=== PATIENT | female | born 1950 | race Caucasian/White ===

== ENCOUNTER 2020-11-21 10:23 | Outpatient (CLI) | payer MEDICARE, SELFPAY ==
--- NOTE | 2020-11-21 10:30 | ECG_ITS ---
Measurements Intervals [place] Rate: 72 P: 52 [place]: 147 QRS: 5 QRSD: 83 T: 40 QT: 380 QTc: 417 Interpretive Statements SINUS RHYTHM INCOMPLETE RIGHT BUNDLE BRANCH BLOCK DELAYED PRECORDIAL R/S TRANSITION BASELINE ARTIFACT- III, AL, AVF BORDERLINE ECG Electronically Signed On 11-21-2020 10:45:29 CDT by Jose Manuel Mooney D.O.
[2020-11-21 10:58] LABS: Anion Gap 6 mmol/L (8-16); Blood Urea Nitrogen 20 mg/dL (7-17); Calcium 10.3 mg/dL (8.4-10.2); Carbon Dioxide 32 mmol/L (22-30); Chloride 99 mmol/L (98-107); Estimated Glomerular Filt Rate > 60; Glucose 115 mg/dL (65-105); Potassium 4.3 mmol/L (3.4-5.0); Sodium 137 mmol/L (137-145)
== END 2020-11-21 10:24 | disposition home or self-care (01) ==
LOC: ANHSURGERY 10:28
PROVIDERS: Anesthesiology; PCP Internal Medicine; Visit Provider Orthopaedic Surgery
DX: Z01.818 Encounter for other preprocedural examination (principal); E11.9 Type 2 diabetes mellitus without complications; I45.10 Unspecified right bundle-branch block
CPT/HCPCS: 36415; 80048; 93005

== ENCOUNTER → 2020-11-28 01:18 | Outpatient (CLI) | payer MEDICARE, SELFPAY ==
[2020-11-28 18:48] LABS: SARS-CoV-2 RNA PCR Negative
== END ==
PROVIDERS: PCP Internal Medicine; Visit Provider Orthopaedic Surgery
DX: Z01.812 Encounter for preprocedural laboratory examination (principal); Z20.822 Contact with and (suspected) exposure to COVID-19
CPT/HCPCS: C9803; U0003; U0005

== ENCOUNTER 2020-12-01 01:59 | Day surgery (SDC) | payer MEDICARE, SELFPAY ==
[2020-11-17 10:22] VITALS: BMI 24.8
--- NOTE | 2020-11-30 09:38 | P.PNAN_ITS ---
Anes - Initial Pre Proc Eval Procedure: Operation Date: 12/01/20 10:00 Proposed Procedures p Removal Hardware Left Ankle - Srinivas Hdez MD Date/Time: 11/30/20 09:38 Surgeon: Srinivas Hdez MD Pre Op Diagnosis: painful orthopedic hardware Patient Data Age: 70 Gender: F Height: 1.52 m Weight: 57.72 kg Allergies Allergy/AdvReac Type Severity Reaction Status Date / Time No Known Allergies Allergy Verified 12/01/20 08:14 Home Medications Medication Instructions Recorded Confirmed Type lisinopril 20 mg PO BID 08/06/19 12/01/20 History metformin 500 mg BID 11/17/20 12/01/20 History famotidine 20 mg PO BID 11/21/20 12/01/20 History Patient hx anesthesia problems: none Family hx anesthesia problems: none [facility] Past Medical History Medical History (Updated 11/30/20 @ 09:39 by Jimmy Rivas DO) Aftercare following surgery (08/10/19) Diabetes type 2, controlled Fracture of left ankle, lateral malleolus GERD (gastroesophageal reflux disease) Hard of hearing History of ovarian cancer Hypertension Neuropathy Status post open reduction and internal fixation (ORIF) of fracture (08/10/19) Family History Family History Sibling Carcinoma of colon Father Malignant neoplasm of prostate Mother Family history of lung cancer Social History Social History Smoking status: Never smoker Second hand tobacco smoke exposure: No Alcohol intake: current Alcohol use details: STATES MAYBE 1 DRINK/MONTH Substance use: never Substance use type: does not use Living arrangements: with family Gender identity (if verbalized by the patient): Female Spiritual care concerns: No Anes - Eval Final PreProcedure Day of Procedure 11/30/20 09:38 Patient weight: normal Heart: regular rate and rhythm Lungs: clear to auscultation and normal air movement Airway: Mallampati scale class III Neurological: alert and oriented Last oral intake: >/= 8 hours ASA classification: III Emergent: no Anesthetic plan: proceed Anesthesia type and monitoring: general LMA and standard monitoring Informed Consent: The patient's anesthetic plan and its attendant risks and benefits were discussed with the patient/family/POA. Questions were solicited an d answers provided to the satisfaction of the patient/family/POA.
[2020-12-01] VITALS (9 sets, daily range): BP systolic 135–161; BP diastolic 55–80; PULSE 56–86; RESP 11–20; TEMP 36.2–36.4; O2SAT 98–100
--- NOTE | ~2020-12-01 | XR_ITS ---
EXAMINATION: XR surgery orthopedic EXAM DATE: 12/01/2020 11:11 INDICATION: Left ankle hardware removal. TECHNIQUE: Fluoroscopy used during XR surgery orthopedic performed by Dr. Srinivas Hdez MD. R adiologist was not present for the imaging or procedure. Total fluoroscopic time of 1 2nd. The DAP for this procedure was 0.30360 mGym2. A total of 2 images sent to PACS from the exam. FINDINGS: Defects from prior fibular hardware identified. No residual metallic foreign bodies identi fied. Correlate with procedure note. IMPRESSION: Fluoroscopy used during left fibular hardware removal. Reviewed, dictated and finalized at location A.
--- NOTE | 2020-12-01 07:14 | WPDHPUPDATE1 ---
History and Physical Update Update Date/Time: 12/01/20 07:14 History and Physical has been reviewed, including an updated exam of the patient. There are NO changes in the patient's condition. Risks, benefits, and alternatives have been discussed and questions answered. Patient agrees to proceed with procedure.
[2020-12-01] MEDS: ACETAMINOPHEN 500 MG TABLET 1000 MG PO (08:36)
[2020-12-01] MEDS: LACTATED RINGERS 1,000 ML 30 ML IV CONT (08:40)
[2020-12-01] MEDS: KETOROLAC 15 MG/ML VIAL (*BKC) IV PUSH (08:45)
[2020-12-01 08:50] LABS: Glucose Point of Care 110 mg/dl (65-105)
[2020-12-01] MEDS: ceFAZolin 2 GM/D5W 50 ML 2 GM/50 ML BAG IVPB (10:24)
[2020-12-01] MEDS: BUPIVACAINE HCL 0.5% PF 30 ML VIAL 20 ML INFILTRATE (11:13)
[2020-12-01 11:41] LABS: Glucose Point of Care 104 mg/dl (65-105)
--- NOTE | 2020-12-01 12:27 | PM.PROC ---
Procedure Note - Detailed Date of procedure: 12/01/20 Pre-op diagnosis: painful orthopedic hardware Post-op diagnosis: same Procedure performed: Removal deep implanted hardware distal fibula lateral plate and screws. Status post ORIF distal fibula fracture. Anesthesia: GLMA Surgeon: Srinivas Hdez MD Drilling Rig Operator: Mavis Zambrano PA-C Estimated blood loss (mL): 5 Complications: No immediate complications Condition: stable Disposition: PACU Findings: Preoperative antibiotics were given. The leg was prepped and draped in usual sterile fashion. Tourniquet was placed high on the thigh. The limb was exsanguinated and the tourniquet inflated to 300 mmHg. A longitudinal incision was created at the previous incision along the distal fibula. The plate was carefully exposed. No peroneal nerve branches were encountered. The screws removed sequentially followed by the plate. The screw holes were curetted. Soft tissues were closed with interrupted 2-0 Vicryl suture, 3-0 Monocryl suture, 4-0 running Monocryl. Steri-Strips were applied. Sterile bulky dressing was applied. Patient was extubated and brought to the recovery room in stable condition. There were no complications.
== END 2020-12-01 13:42 | disposition home or self-care (01) ==
PROVIDERS: PCP Internal Medicine; Visit Provider Orthopaedic Surgery
PROC: (CPT 20680; principal; 2020-12-01 10:00)
DX: T84.84XA Pain due to internal orthopedic prosthetic devices, implants and grafts, initial encounter (principal); Y83.8 Other surgical procedures as the cause of abnormal reaction of the patient, or of later complication, without mention of misadventure at the time of the procedure; M25.572 Pain in left ankle and joints of left foot; Z87.81 Personal history of (healed) traumatic fracture; I10 Essential (primary) hypertension; E11.40 Type 2 diabetes mellitus with diabetic neuropathy, unspecified; K21.9 Gastro-esophageal reflux disease without esophagitis; Z85.43 Personal history of malignant neoplasm of ovary; Z79.84 Long term (current) use of oral hypoglycemic drugs
CPT/HCPCS: 20680; 82948; A9270; J0690; J1100; J1885; J2250; J2405; J2704; J3010; J7120

== ENCOUNTER 2022-08-08 06:39 | Outpatient (CLI) | payer MEDICARE, SELFPAY ==
--- NOTE | ~2022-08-08 | CT_ITS ---
CT Abdomen and Pelvis with contrast. History: Abdominal pain. Spiral CT of the abdomen and pelvis was performed after the administration of intravenous contrast. 1 00 cc of Omnipaque 350 was administered intravenously without complication. Dose reduction technique was used on this scan by utilizing automated exposure control and iterative reconstruction technique. The dose-length product (DLP) was 304.45 mGy-cm. Findings: Scans through the lung bases demonstrate mild atelectatic change. Diffuse fatty infiltration of the liver noted. The spleen, pancreas, gallbladder, adrenals and kidney s are within normal limits. No evidence of aortic aneurysm. No lymphadenopathy is seen. There is no evidence of bowel obstruction. There is no evidence to suggest acute appendicitis or dive rticulitis. Images through the pelvis were performed. Right inguinal hernia contains a small portion of the urina ry bladder (axial image 174, coronal image 37 for example). Patient is status post hysterectomy. No o ther pelvic mass seen. No ascites is seen. Impression: Right-sided inguinal hernia which contains a small portion of the urinary bladder, as detailed above. Diffuse fatty infiltration of liver. Reviewed, dictated and finalized at location M. PULLER Impression: Right-sided inguinal hernia which contains a small portion of the urinary bladd er, as detailed above. Diffuse fatty infiltration of liver.
[2022-08-08 07:06] LABS: Estimated Glomerular Filt Rate > 60
== END 2022-08-08 06:40 | disposition home or self-care (01) ==
PROVIDERS: PCP Internal Medicine; Visit Provider Nurse Practitioner Obstetrics & Gynecology
DX: R10.2 Pelvic and perineal pain (principal); K40.90 Unilateral inguinal hernia, without obstruction or gangrene, not specified as recurrent; K76.0 Fatty (change of) liver, not elsewhere classified
CPT/HCPCS: 74177; Q9967

== ENCOUNTER 2024-05-04 07:44 | Outpatient (CLI) | payer MEDICARE, SELFPAY ==
--- NOTE | ~2024-05-04 | CT_ITS ---
CT abdomen pelvis w con Ordering provider: Clement Barnes MD History: 74 years Female with . INGUINAL PAIN,PELVIC AND PERINEAL PAIN . Comparison: August 08, 2022 Technique: CT abdomen and pelvis with IV and without oral contrast. Automated exposure control and it erative reconstruction technique were employed. The dose-length product was 349.49 mGy-cm. 100 mL Omn ipaque 350 was given IV. Findings: VISUALIZED LOWER CHEST: Dependent atelectatic changes. Possible nodule near to the right oblique fiss ure measuring 5 mm. UPPER ABDOMINAL ORGANS: Liver: Fat infiltration. CBD measures 1 cm. Gallbladder: Normal. Distended with no definite stones. Small hyperdense area seen near to the neck o f the gallbladder which may be a stone or enhancement in the wall. Spleen: Normal. Benign calcification. Stomach/duodenum: Normal. Pancreas: Normal. Adrenals: Normal. Kidneys: Minimal fullness of the left renal pelvis. No ureteric stones seen. No dilatation of the ure ters. Pelviureteric junction stenosis should be considered. PELVIC ORGANS: The bladder is underfilled and appear normal. BOWEL AND MESENTERY: Colon: No evidence of diverticulitis. No evidence of appendicitis. Possibility of status post appende ctomy is not excluded. Small Bowel: Normal. No obstruction. Peritoneum/mesentery: No free air or free fluid. No mesenteric lymphadenopathy. RETROPERITONEUM: Mild atheromatous disease of the abdominal aorta. No retroperitoneal lymphadenopat hy. MUSCULOSKELETAL: Superficial soft tissues: Soft tissue density seen in the right inguinal area which is unchanged from previous examination. Follow-up advised. Otherwise, The superficial soft tissues are normal. Bones: Age appropriate degenerative changes of the spine. IMPRESSION: 1. Soft tissue density in the right inguinal area unchanged from previous examination. Follow-up adv ised. 2. Fat infiltration of the liver. 3. Fullness of the renal pelvis bilaterally. Reviewed, dictated and finalized at location A. IMPRESSION: 1. Soft tissue density in the right inguinal area unchanged from previous exam ination. Follow-up advised. 2. Fat infiltration of the liver. 3. Fullness of the renal pelvis bilaterally.
[2024-05-04 08:17] LABS: Estimated Glomerular Filt Rate > 60
== END 2024-05-04 07:45 | disposition home or self-care (01) ==
PROVIDERS: PCP Internal Medicine; Visit Provider Obstetrics & Gynecology
DX: R10.2 Pelvic and perineal pain (principal); K76.0 Fatty (change of) liver, not elsewhere classified
CPT/HCPCS: 74177; Q9967

== ENCOUNTER 2024-05-13 10:46 | Outpatient (CLI) | payer MEDICARE, SELFPAY ==
--- NOTE | ~2024-05-13 | US_ITS ---
EXAMINATION: US soft tissue groin RT DATE: 05/13/2024 11:06 INDICATION: R10.31 - Right lower quadrant pain . TECHNIQUE: Grayscale and Doppler ultrasound images of the right groin were obtained. COMPARISON: 05/04/2024 CT abdomen and pelvis FINDINGS: In the right groin in the area of clinical concern is an inguinal hernia with a 16 mm neck, exacerbated by Valsalva maneuver. Herniated content is slightly hypoechoic to adjacent subcutaneous fat. No definite cystic/fluid component of the herniated material. In the prior CT the right superola teral corner of the urinary bladder appear to be herniated. IMPRESSION: Right inguinal hernia. Reviewed, dictated and finalized at location K. IMPRESSION: Right inguinal hernia.
== END 2024-05-13 10:47 | disposition home or self-care (01) ==
PROVIDERS: PCP Internal Medicine; Visit Provider Surgery
DX: R10.31 Right lower quadrant pain (principal); K40.90 Unilateral inguinal hernia, without obstruction or gangrene, not specified as recurrent
CPT/HCPCS: 76882

== ENCOUNTER 2024-07-09 17:22 | Emergency (ER) | payer MEDICARE, SELFPAY ==
--- NOTE | ~2024-07-09 | XR_ITS ---
EXAM: XR knee RT min 4V DATE: 07/09/2024 18:11 HISTORY: right knee pain, injury . COMPARISON: None available. FINDINGS: Osteopenia. No fracture or dislocation. No lytic or blastic lesion. Mild degenerative birch ge. No erosion or periosteal change. Thickening of the distal quadriceps tendon. IMPRESSION: No acute osseous finding the right knee. Thickening of the distal quadriceps tendon which could represent chronic change or acute injury, correlate for pain/point tenderness. Reviewed, dictated and finalized at location K. RMATION TECHNOLOGY SECURITY ANALYST IMPRESSION: No acute osseous finding the right knee. Thickening of the distal q uadriceps tendon which could represent chronic change or acute injury, correlat e for pain/point tenderness.
[2024-07-09 17:25] VITALS: BP 149/61; PULSE 78; RESP 16; TEMP 36.4; O2SAT 99
--- NOTE | 2024-07-09 17:47 | ED.EXTPRO ---
HPI - Extremity Problem General Chief complaint: Extremity Problem,Nontraumatic Stated complaint: r knee pain Time Seen by Provider: 07/09/24 17:47 Focused HPI: This is a 74 year old female that presents to the ER for right knee pain. Ongoing over the last week. Reports today she was walking and felt like the back of her knee snapped. She fell to the floor. She did not hit her head or lose consciousness. GENERAL: Well-appearing, well-nourished, and in no acute distress. HEAD: Normocephalic, atraumatic. CHEST: Clear to auscultation. ?No respiratory distress. HEART: Regular rate and rhythm.? NEURO: ?Alert and oriented x3. Patient screened in triage and initial orders placed.? ?Additional care and disposition to be based upon?diagnostic testing and treatment. Related Data Home Medications ?Medication ?Instructions ?Recorded ?Confirmed ?Last Taken ?Type lisinopril 20 mg tablet 20 mg PO BID 08/06/19 05/25/24 11/30/20 History metformin 500 mg tablet 500 mg BID 11/17/20 05/25/24 11/30/20 History famotidine 20 mg tablet 20 mg PO BID 11/21/20 05/25/24 11/30/20 History Allergies Allergy/AdvReac Type Severity Reaction Status Date / Time No Known Allergies Allergy Verified 05/25/24 08:31 [facility] Past Medical History Medical History (Updated 07/13/24 @ 21:26 by Jade Garcia PA-C) History of ovarian cancer Hard of hearing Diabetes type 2, controlled GERD (gastroesophageal reflux disease) Neuropathy Aftercare following surgery (08/10/19) Fracture of left ankle, lateral malleolus Hypertension Surgical History Surgical History Status post open reduction and internal fixation (ORIF) of fracture (08/10/19) Family History Family History Sibling Carcinoma of colon Father Malignant neoplasm of prostate Mother Family history of lung cancer Social History Social History Smoking status: Never smoker Second hand tobacco smoke exposure: No Alcohol intake: current Alcohol use details: STATES MAYBE 1 DRINK/MONTH Substance use: never Substance use type: does not use Do You Feel Safe in your Home?: Yes Lack of Transportation: No Lack of Food: Never True Current Housing: I Have Housing Concerned About Future Housing: No Difficulty Paying Gas/Electric Bills: No Difficulty Paying for Meds: No Currently Unemployed: No Education: High School Diploma/GED Living arrangements: with family Gender identity (if verbalized by the patient): Female Spiritual care concerns: No Course Vital Signs Vital signs: Vital Signs Temperature 97.6 F 07/09/24 17:25 Pulse Rate 78 07/09/24 17:25 Respiratory Rate 16 07/09/24 17:25 Blood Pressure 149/61 H 07/09/24 17:25 Pulse Oximetry 99 07/09/24 17:25 Temperature 97.6 F 07/09/24 17:25 Pulse Rate 78 07/09/24 17:25 Respiratory Rate 16 07/09/24 17:25 Blood Pressure 149/61 H 07/09/24 17:25 Pulse Oximetry 99 07/09/24 17:25 MDM - Extremity (Nontraumatic) MDM Narrative Medical decision making narrative: Patient left after medical screening exam and initial workup and before any further evaluation or management Imaging Data Radiologist's impression: ITS Impressions Knee X-Ray 07/09/24 18:19 IMPRESSION: No acute osseous finding the right knee. Thickening of the distal quadriceps tendon which could represent chronic change or acute injury, correlate for pain/point tenderness. Critical Care Time Critical Care Time Critical Care Time: No Discharge Plan Discharge Clinical Impression: Acute pain of right knee Patient Disposition: Elopement After Seen by Prov Condition: Stable Patient Language: Bulgarian Prescriptions: No Action lisinopril 20 mg Tablet 20 mg PO BID metformin 500 mg tablet 500 mg BID famotidine 20 mg Tablet 20 mg PO BID hydrocodone-acetaminophen 5-325 mg tablet 1 tablet PO Q4H PRN (Reason: pain) Qty: 20 0RF Follow-up/Referrals: lEeazar,Arvin Foote MD [Primary Care Provider] -
== END 2024-07-09 18:00 | disposition left against medical advice (07) ==
PROVIDERS: Emergency Provider Physician Assistant; PCP Internal Medicine
DX: M25.561 Pain in right knee (principal); E11.9 Type 2 diabetes mellitus without complications; Z79.84 Long term (current) use of oral hypoglycemic drugs; K21.9 Gastro-esophageal reflux disease without esophagitis; I10 Essential (primary) hypertension; Z85.43 Personal history of malignant neoplasm of ovary
CPT/HCPCS: 73564; 99283

== ENCOUNTER 2024-08-31 09:01 | Outpatient (CLI) | payer MEDICARE, SELFPAY ==
--- NOTE | ~2024-08-31 | XR_ITS ---
EXAMINATION: XR chest 2V DATE: 08/31/2024 09:39 INDICATION: Preoperative evaluation prior to inguinal hernia repair. TECHNIQUE: PA and lateral views of the chest were obtained. COMPARISON: Chest radiograph dated 04/20/2012 FINDINGS: Mild linear discoid atelectasis/scarring at the left lower lung zone. No other airspace opacities, pu lmonary edema, pleural effusion or pneumothorax. Heart size is normal. Visualized bones and soft tiss ues are unremarkable. IMPRESSION: 1. Mild discoid atelectasis/scarring in the left lower lung zone. Reviewed, dictated and finalized at location A. TRICAL DESIGN TECHNOLOGIST
--- NOTE | 2024-08-31 09:16 | ECG_ITS ---
Test Date: 2024-08-31 09:21:08 Measurements Intervals [place] Rate: 73 P: 51 [place]: 145 QRS: 2 QRSD: 89 T: 25 QT: 397 QTc: 439 Interpretive Statements SINUS RHYTHM BASELINE ARTIFACT- I, II, III, AVR, AVL, AVF, V1-V6 NORMAL ECG No previous ECG available for comparison Electronically Signed On 08-31-2024 09:36:49 VIRTUALIZATION ARCHITECT by Jose Manuel Mooney D.O.
[2024-08-31 09:38] LABS: Basophils Absolute Auto 0.1 K/mm3 (0.0-0.1); Eosinophils Absolute Auto 0.2 K/mm3 (0-0.3); Eosinophils Percent Auto 2.9 % (0-4.4); Hematocrit 37.7 % (37.0-47.0); Hemoglobin 11.4 g/dL (12.0-15.0); Immature Granulocyte Absolute 0.04 K/mm3 (0.00-0.031); Immature Granulocyte Percent A 0.6 % (0-0.5); Lymphocytes Absolute Auto 1.44 K/mm3 (0.9-3.2); Mean Corpuscular HGB Conc 30.2 g/dl (32-36); Mean Corpuscular Hemoglobin 24.5 pg (26-34); Mean Corpuscular Volume 81.1 fl (80-100); Mean Platelet Volume 10.4 fl (7.4-10.4); Monocytes Absolute Auto 0.6 K/mm3 (0.1-0.6); Monocytes Percent Auto 9.2 % (2.6-8.5); Neutrophils Absolute Auto 4.5 K/mm3 (1.3-6.7); Neutrophils Percent Auto 65.3 % (45.5-73.1); Platelet Count Result 162 k/mm3 (150-375); Red Blood Count 4.65 M/mm3 (4.2-5.4); Red Cell Distribution Width 14.1 % (11.5-14.5); White Blood Count 6.9 K/mm3 (4.5-10.0)
[2024-08-31 09:49] LABS: Anion Gap 8 mmol/L (4-12); Blood Urea Nitrogen 18 mg/dL (7-17); Calcium 9.7 mg/dL (8.4-10.2); Carbon Dioxide 27 mmol/L (22-30); Chloride 107 mmol/L (98-107); Estimated Glomerular Filt Rate > 60; Glucose 148 mg/dL (65-110); Potassium 4.5 mmol/L (3.4-5.0); Sodium 142 mmol/L (137-145)
--- OUTSIDE RECORDS SUMMARY | 2024-08-31 11:49 | XMS_ITS | Data Portability ---
Author Organization [facility] Address [address] [place] [address] Care Team Providers Care Business Support Assistant Name Role Phone DEBBIE ALFONSO Primary Care Provider [phone] Assessment Encounter Date Assessment Date Assessment LastModified by Organization Details LastModified Time 07/23/2022 07/23/2022 Recommend update PCP visit for BP check & discussion medication change. [email or web address] Not available 07/23/2022 12:49:33 Plan of Treatment Reminders Order Date Submit Date Provider Last Modified By Organization Details Last Modified Time Details Appointments None recorded. Lab None recorded. Referral None recorded. Procedures None recorded. Surgeries None recorded. Imaging US, pelvis 2023 [address] [place] [address] [address], [address], [place], [address], 12:10:28 US, transvagina l 2023 [address] [place] [address] [address], [place], [address], 12:10:28 MAMMO, screening, bilateral [address] [facility] [address] [facility], [address], [place] [address], [place], [address], 3 09:12:56 CT, abdomen + pelvis, w/ contrast - looking for causes of pelvic or abdominal pain; reports hysterectom y want to ensure no svp research and strategic analysis parts left 2022 023 [facility], [address], [place], [address], 12:20:54 Medication Orders Imvexxy Maintenance Pack 10 mcg vaginal insert 2022 [address]23 [address] [facility] [address], [address], 10:48:43 Patient TargetsNo targets recorded. Patient InstructionsNo instructions recorded. Reason for Referral None Reported. Results Created Date Observation Date Name Description Value Unit Range Abnormal Flag Note LastModifiedBy Organization Detail LastModifiedTime 07/23/1907/23/2022 CT/GC AND TRICH OMONA S VAGIN LISA (RRNA ), SWAB chlamydia trachomatis, PCR NEGATI VE negati ve Not Available [facility] (Lab) [address], [place], [address], 07/24/2022 13:07:29 07/23/19 23 07/23/2022 CT/GC AND TRICH OMONA S VAGIN LISA (RRNA ), SWAB neisseria gonorrhoeae, PCR NEGATI VE negati ve Not Available [facility] (Lab) [address], [place], [address], 07/24/2022 13:07:29 07/23/19 23 07/23/2022 CT/GC AND TRICH OMONA S VAGIN LISA (RRNA ), SWAB trichomonas vaginalis ribosomal RNA (rrna) NEGATI VE negati ve Not Available [facility] (Lab) [address], [place], [address], 07/24/2022 13:07:29 08/20/19 23 08/08/2022 CT, abdom en + pelvi s, w/ contr ast No observ ation record ed. [email or web address], [place], [address], 11/19/2022 10:44:02 10/03/20 24 04/16/2024 US, pelvi s No observ ation record ed. [email or web address] [place] [address], [place], [address], 04/16/2024 12:56:05 04/16/20 24 04/16/2024 US, trans vagin al No observ ation record ed. [email or web address] [place] [address], [place], [address], 04/16/2024 12:56:18 04/16/20 24 04/16/2024 US, pelvi s No observ ation record ed. [email or web address], [place], [address], 04/16/2024 21:50:32 05/04/20 24 05/04/2024 CT, abdom en + pelvi s, w/wo contr ast No observ ation record ed. [facility] [address], [place], [address], 05/08/2024 10:18:42 Result Notes None recorded. Problems Name Problem SNOMED Code Status Onset Date Resolution Date Notes Provider Name and Address Organization Details Recorded Time SNOMED CT Concept Active 2016 Encntr for general adult medical exam w/o abnormal findings;P ashishtice ID: [id number] Not Available [facility] 0 16:45:56 Screening for malignant neoplasm of rectum Active 2016 Encounter for screening for malignant neoplasm of rectum;Rec orded Elsewhere: No Locatio n: [facility] rce: EHR Chroni c: N Practice ID: [id number] Billa ble Time: 08:15:00 AM Not Available [facility] 0 16:45:[address] Concept Active 2016 Well woman check w/o abnormal finding;Re corded Elsewhere: No Locatio n: [facility] rce: EHR Chroni c: N Practice ID: 0001 Billa ble Time: 08:15:00 AM Not Available [facility] 0 16:45:56 Screening for malignant neoplasm of cervix Active 2016 Encounter for screening for malignant neoplasm of cervix;Rec orded Elsewhere: No Locatio n: [facility] rce: EHR Chroni c: N Practice ID: [id number] Karthikeyan gregg Time: 08:15:00 AM Not Available [facility] 0 16:45:56 Problem Notes None recorded. Procedures Surgical History Date Name Laterality Status Provider Name and Address Organization Details Recorded Time 10/14/19 23 hernia repair completed Annie Martinez [facility] 11/19/2022 09:57:27 03/26/20 17 Date of Last Pap Smear completed Kathleen Espino [facility] 07/23/2022 09:24:11 07/15/18 95 hysterectomy completed Nithya Chan [facility]- [address], [place], [address], [facility] 07/23/2022 12:35:43 07/17/18 94 Removal of ovary(s) completed Nithya Chan JESSICA- [address], [place], [address], [place] [facility] 07/23/2022 12:35:35 Imaging Results Imaging Date Name Status LastModified by Organization Details LastModified Time 08/08/2022 CT, abdomen + pelvis, w/ contrast completed [address], [place], [address], 11/19/2022 10:44:02 04/16/2024 US, pelvis completed [email or web address] [place] [address], [place], [address], 04/16/2024 12:56:05 04/16/2024 US, transvaginal [email or web address] [address], [place], [address], 04/16/2024 12:56:18 04/16/2024 US, pelvis completed [email or web address] [address], [place], [address], 04/16/2024 21:50:32 05/04/2024 CT, abdomen + pelvis, w/wo contrast completed [facility] [address], [place], [address], 05/08/2024 10:18:42 Procedure Notes None recorded. Medical Equipment None Reported. Allergies No known drug allergies Medications Name Sig Start Date Stop Date Status Note LastModified by Organization Details LastModified Time losartan 50 mg tablet TAKE 1 TABLET BY MOUTH ONCE DAILY 04/23 completed Not Available Not Available Not Available metformin 500 mg tablet TAKE 2 TABLETS BY MOUTH TWICE DAILY WITH FOOD active Not Available Not Available No t Available meloxicam 15 mg tablet TAKE 1 TABLET BY MOUTH ONCE DAILY active Not Available Not Available No t Available alendrona te 70 mg tablet TAKE 1 TABLET BY MOUTH ONCE A WEEK active Not Available Not Available No t Available peg-elect rolyte solution 420 gram oral solution DRINK HALF AT 5PM ON 01/09/20 24, THEN DRINK THE OTHER HALF AT 5AM ON 04/23 completed Not Available Not Available Not Available triamcino lone acetonide 0.1 % topical cream APPLY CREAM TOPICALL Y TO AFFECTED AREA TWICE DAILY FOR 7 DAYS active Not Available Not Available No t Available glimepiri de 2 mg tablet TAKE 1 TABLET BY MOUTH ONCE DAILY active Not Available Not Available No t Available oxycodone -acetamin ophen 5 mg-325 mg tablet TAKE 1 TABLET BY MOUTH EVERY 4 TO 6 HOURS NEEDED 04/23 completed Not Available Not Available Not Available famotidin e 20 mg tablet TAKE 1 TABLET BY MOUTH TWICE DAILY 04/23 completed Not Available Not Available Not Available meclizine 25 mg tablet take 1 tablet by oral route 3 times every day as needed 07/23 completed Prescrib ed Elsewher e: Yes Loca tion: [facility] odify By: elaine zambrano DateTime : 03/26/20 17 08:15:00 AM Not Available Not Available Not Available esomepraz ole magnesium 40 mg capsule,d elayed release Take 1 capsule every day by oral route. 04/23 completed Not Available Not Available Not Available lisinopri l 10 mg tablet take 1 tablet by oral route every day 07/23 completed Prescrib ed Elsewher e: Yes [facility]oca [facility] By: elaine zambrano DateTime : 03/26/20 17 08:15:00 AM Not Available Not Available Not Available bisacodyl 5 mg tablet,de layed release TAKE ALL TABLETS BY MOUTH AT 8 AM ON 01/09/24 active Not Available Not Available No t Available ergocalci ferol (vitamin D2) 1,250 mcg (50,000 unit) capsule TAKE 1 CAPSULE BY MOUTH ONCE A WEEK active Not Available Not Available No t Available losartan 100 mg tablet TAKE 1 TABLET BY MOUTH ONCE DAILY active Not Available Not Available No t Available doxycycli ne hyclate 100 mg tablet TAKE 1 TABLET BY MOUTH TWICE DAILY active Not Available Not Available No t Available Premarin 0.625 mg/gram vaginal cream Insert 0.5mg vaginall y at bedtime nightly x 14 nights; then, use twice weekly for maintena nce. 11/19 completed Not Available Not Available Not Available nitrofura ntoin monohydra te/macroc rystals 100 mg capsule TAKE 1 CAPSULE BY MOUTH EVERY 12 HOURS FOR 5 DAYS 04/23 completed Not Available Not Available Not Available Jaimee Allergy 60 mg tablet take 1 tablet by oral route 2 times every day 07/23 completed Prescrib ed Elsewher e: Yes Loca tion: [facility] odify By: elaine zambrano DateTime : 03/26/20 17 08:15:00 AM Not Available Not Available Not Available Imvexxy Maintenan ce Pack 10 mcg vaginal insert Insert 1 vaginal insert twice a week by vaginal route at bedtime for 60 days. 2022 active Not Available Not Available Not Avai lable Vitals Date Recorded Body height Body mass index (BMI) Body weight Provider Name and Address Organization Details Last Updated DateTime 07/23/2022 154.94 cm 25.3 kg/m2 57365.66 g Kathleen Espino [facility] 07/23/2022 10:25:10 Date Recorded Systolic blood pressure Diastolic blood pressure Provider Name and Address Organization Details Last Updated DateTime 07/23/2022 160 mm[Hg] 80 mm[Hg] Nithya Chan, [facility] [address], [place], [address], [facility] 07/23/2022 10:46:50 Date Recorded Body height Body mass index (BMI) Body weight Provider Name and Address Organization Details Last Updated DateTime 11/19/2022 154.94 cm 25.3 kg/m2 06182.38 g Annie Juan [facility] 11/19/2022 09:55:37 Date Recorded Systolic blood pressure Diastolic blood pressure Provider Name and Address Organization Details Last Updated DateTime 11/19/2022 118 mm[Hg] 80 mm[Hg] Nithya Chan [facility] [address], [place], [address], [facility] 11/19/2022 10:43:52 Date Recorded Body height Body mass index (BMI) Body weight Systolic blood pressure Diastolic blood pressure Provider Name and Address Organization Details Last Updated DateTime 04/23/2024 154.94 cm 25.7 kg/m2 22507.56 g 159 mm[Hg] 83 mm[Hg] Annie Juan [facility] 16:54:54 Social History Question Answer Notes LastModified by Organizat ion Details LastModified Time Tobacco Smoking Status Never Smoker Kathleen merino, [facility] 07/23/2022 10:27:31 What Is Your Level Of Alcohol Consumption? None Information not available 07/23/2022 Are You Blind Or Do You Have Difficulty Seeing? No Information n ot available 07/23/2022 In The 14 Days Before Symptom Onset, Have You Had Close Contact With A Laboratory-confirm ed COVID-19 While That Case Was Ill? No Information n ot available 11/19/2022 In The 14 Days Before Symptom Onset, Have You Had Close Contact With A Person Who Is Under Investigation For COVID-19 While That Person Was Ill? No Information not available 11/19/2022 Have You Been To An Area Known To Be High Risk For COVID-19? No Information not available 11/19/2022 Are You Deaf Or Do You Have Serious Difficulty Hearing? No Information not available 07/23/2022 What Type Of Diet Are You Following? REGULAR Information n ot available 07/23/2022 Sex: Unknown Functional Status Question Answer Note LastModified by Organizat ion Details LastModified Time Do you have difficulty walking or climbing stairs? No Information not available 07/23/2022 Are you able to walk? YESWOREST Information not available 07/23/2022 Are you able to care for yourself? Yes Information not available 07/23/2022 Do you have difficulty dressing or bathing? No Information not available 07/23/2022 What is your exercise level? Occasional Information not available 07/23/2022 Mental Status None recorded. Family History Relationship Description Onset Age of this Age Resolved Age Notes LastModified by Organization Details LastModified Time Mother Malignant tumor of breast Not available 2022 10:26:47 Mother Diabetes mellitus Not available 2022 10:27:10 Mother Malignant tumor of ovary Not available 2022 10:27:17 Brother Malignant tumor of colon Not available 2022 10:26:55 Father Heart disease Not available 2022 10:27:02 Notes:Brother: Diabetes surinder itus Mother: Diabetes mellitus, Cancer, breast, Asthma Sister: Hypertension Medical History Condition Response Allergies (Food, seasonal, environmental ) N Other N Breast Cancer N Drug/Latex Allergies/Reactions N Blood Transfusion N Dermatologic Disorders N Lung Disease N Defects or Inherited Disease N Breast Problem N Gestational Diabetes N Hematologic disorders N Anesthesia Complications N History of STI N Deep Vein Thrombosis N Polycystic ovary syndrome N Anxiety Disorder N Autoimmune disease N Arthritis N Infertility N Polyps N Acid Reflux (GERD) N History of abnormal pap N Cancer Y Stroke N Varicosities N Neurologic/Epilepsy N Endometriosis N High Cholesterol N Headaches N Fibromyalgia N Kidney Disease N Heart Problems N Kidney or Bladder Problems N Thyroid Problems N GI Problems N Eating Disorder N Anemia N Art (IVF or FET) N Psychiatric Illness N Ovarian Cancer N Diabetes Y Pulmonary (TB, Asthma) N Hepatitis/Liver Disease N No Past Medical History N Eczema N Urinary Tract Infection N Abuse/Domestic Violence N Asthma N Trauma/Violence N Depression/ depression N Heart Disease N Pre-Eclampsia N Hypertension Y Osteoporosis N Thrombophilias N Gynecological History Statement/Question Response Date of LMP 07/15/1994 STIs/STDs N HPV Vaccine N Current Control Method Hysterectom y If Post Menopausal, Age at Menopause 45 Sexually Active? Y Menses Monthly N Age of first menstrual cycle 14 Date of Last Pap Smear 03/26/2017 Sexual Problems? Y Desired Control Method Hysterectom y LMP Unknown Obstetrics History GPAL:G 3 P 3 0 0 3 Type Value Full Term 3 Living 3 Total 3 Past Encounters Encounter ID Performer Location Encounter Start Date Encounter Closed Date Diagnosis/Indication Diagnosis SNOMED-CT Code Diagnosis ICD10 Code Diagnosis Note [id number] Nithya Chan [facility] [address] [address] 07/23/2022 10:13:26 07/23/2022 18:22:21 Pain in pelvis 82474456 R10.[address] scan-very atrophic unsure if could tolerate TVUS but will explore if CT not sufficient .Would like CT since she voices having had no imaging work up to this point abd or other; and has a lot of GI issues (GERD/Stom ach upset). Will await results & determine next steps in POC. Time spent in visit is a total of 35 mins with at least 50% of visit consisting of counseling and review of plan of care. Screening mammography 24 619365 Z12.31 [id number] Nithya Chan [facility] [address] [address] 11/19/2022 09:34:38 11/19/2022 11:03:52 Dyspareunia 99122368 N90.5 Patient not able to start the vaginal estrogen.I t was $500 for Rx premarin.W e discussed initiating therapy using imvexxy samples.We will get her formulary to determine what is covered that is affordable & if there is nothing consider [facility] for vaginal estrogen product.sh e is in agreement. F/U x 3mos once therapy is initiated. Time spent in visit is a total of 15 mins with at least 50% of visit consisting of counseling and review of plan of care. [id number] Elena Rosenthal [place] [address] [address] 04/16/2024 10:53:27 04/16/2024 11:43:03 Pain in pelvis 27575385 R10.2 [id number] Clement Barnes MD [place] [address] [address] 04/23/2024 16:24:38 04/23/2024 17:25:40 Inguinal pain 314471055 R10.2 74-year-ol d female with a pain in the inguinal area. This is the site of a previous hernia surgery. An ultrasound the office did show a possible fluid sac in the area. It reduced during the examinatio n. There is no palpable mass there. She should have general surgery consult. We agreed to order CT scan and have her see General surgery. Ultrasound is otherwise unremarkab le. Health Concerns Section Related Observation LastModified by Organization Detai ls LastModified Time None Recorded Concern Status LastModified by Organization Details LastModified Time None Recorded Advance Directives Directive None Recorded Payers Encounter Date Sequence Insurance Name Policy Number Policy Clemente Covered Member ID Clemente Member ID Guarantor Name 07/23/2022 2 [employer] (MEDICARE SUPPLEMENT) Ary Hairston [id number] rAy Hairston 07/23/2022 1 MEDICARE B: [employer]IL[employer] MEDICARE Ary Hairston [id number] Ary Hairston 11/19/2022 2 [employer] OPTIONS (MEDICARE SUPPLEMENT) Ary Hairston [id number] Ary Hairston 11/19/2022 1 MEDICARE B: [employer]IL[employer] MEDICARE Ary Hairston [id number] Ary Hairston 04/16/2024 2 [employer] OPT[employer] (MEDICARE SUPPLEMENT) Ary Hairston [id number] Ary Hairston 04/16/2024 1 MEDICARE B: [employer] MEDICARE Ary Hairston [id number] Ary Hairston 04/23/2024 2 [employer] OPTIONS (MEDICARE SUPPLEMENT) Ary Hairston [id number] Ary Hairston 04/23/2024 1 [facility]IC[facility] Ary Hairston [id number] Ary Hairston Notes Date Note Type Note Provider Name and Address Organization Details Recorded Time 07/23/2022 text/html Patient is a 72y o white female here today to discuss pelvic pain present that started Apr 2022 while on a cruise with her spouse.Lower midline that wraps around left/right sides into groin.Throbbing/a rgeg.Comes/goes. Unsure of triggers.Random.N eg GI issuesNeg dysuria, urgency, frequency but reports a lot of pelvic pressure. She is SA with spouse but not since this has started.She has been evaluated by PCP/urologist for urinary issues & prolapse but was told neg.Thought this was UTI--treated but still no better.She has had no imaging up to this point.She has a hx of svp research and strategic analysis cancer-seemed unsure which type (i.e. 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 07/23/2022 12:49:57 11/19/2022 text/html Here today for medication check of vaginal estrogen. RAHEL Moreno [address], [place], [address], [facility] 11/19/2022 10:49:41 04/23/2024 text/html 74-year-old female with a pain in the inguinal area. This is the site of a previous hernia surgery. An ultrasound the office did show a possible fluid sac in the area. It reduced during the examination. There is no palpable mass there. She should have general surgery consult. We agreed to order CT scan and have her see General surgery. Ultrasound is otherwise unremarkable. Clement Barnes MD [address], [place], [address], [facility] 04/23/2024 17:25:04 OBGyn Episode Ob Episode Information Episode Created Date Number of Fetuses Patient Bloodtype Patient rh Status Prepregnancy Weight lbs Domestic Partner Domestic Partner Phone Father Name Mass Spectroscopist Status 07/23/19 23 1 CLOSED Fetus Data First Name Last Name Admitted to NICU Weight (g) Sex Living Outcome Pediatric Complications Fetus ID Race Codes Race Delivery Type 2834.95 F Full Term [id number] Vaginal Delivery Jamal Calculation Initial Jamal Date Initial Exam Date Initial Exam Provider Initial Ultrasound Date Last Menstrual Period Date Ultra Sound Weeks Gestation 0 Eighteen To Twenty Week Jamal Update Ultra Sound Date Fundal Height At Umbil Quickening Date Ultra Sound Latest Weeks Gestation Final Jamal Confirmed By Final Jamal Confirmed Date Final Jamal Date Ultra Sound Latest Days Gestation 0 0 Menstrual History Last Menstrual Date Menses Monthly On Bcp Conception Prior Menses Frequency Hcg Plus Date Menarche Onset Age Delivery Information Delivery Date Delivery Type Labor Anesthesia Weeks Gestation Incision Type Labor Labor Length Hrs Delivered By Post Complications Tubal Sterilization Discharge Date Comments 2 Discharge Information Feeding Method Contraceptive Method Maternal HG B and HCT Levels Ob Episode Information Episode Created Date Number of Fetuses Patient Bloodtype Patient rh Status Prepregnancy Weight lbs Domestic Partner Domestic Partner Phone Father Name Mass Spectroscopist Status 07/23/19 23 1 CLOSED Fetus Data First Name Last Name Admitted to NICU Weight (g) Sex Living Outcome Pediatric Complications Fetus ID Race Codes Race Delivery Type 3061.74 6 M Full Term [id number] Primary Jamal Calculation Initial Jamal Date Initial Exam Date Initial Exam Provider Initial Ultrasound Date Last Menstrual Period Date Ultra Sound Weeks Gestation 0 Eighteen To Twenty Week Jamal Update Ultra Sound Date Fundal Height At Umbil Quickening Date Ultra Sound Latest Weeks Gestation Final Jamal Confirmed By Final Jamal Confirmed Date Final Jamal Date Ultra Sound Latest Days Gestation 0 0 Menstrual History Last Menstrual Date Menses Monthly On Bcp Conception Prior Menses Frequency Hcg Plus Date Menarche Onset Age Delivery Information Delivery Date Delivery Type Labor Anesthesia Weeks Gestation Incision Type Labor Labor Length Hrs Delivered By Post Complications Tubal Sterilization Discharge Date Comments 03/01/198 0 Discharge Information Feeding Method Contraceptive Method Maternal HG B and HCT Levels Ob Episode Information Episode Created Date Number of Fetuses Patient Bloodtype Patient rh Status Prepregnancy Weight lbs Domestic Partner Domestic Partner Phone Father Name Mass Spectroscopist Status 07/23/19 23 1 CLOSED Fetus Data First Name Last Name Admitted to NICU Weight (g) Sex Living Outcome Pediatric Complications Fetus ID Race Codes Race Delivery Type 2919.77 [id number] F Full Term [id number] Primary Jamal Calculation Initial Jamal Date Initial Exam Date Initial Exam Provider Initial Ultrasound Date Last Menstrual Period Date Ultra Sound Weeks Gestation 0 Eighteen To Twenty Week Jamal Update Ultra Sound Date Fundal Height At Umbil Quickening Date Ultra Sound Latest Weeks Gestation Final Jamal Confirmed By Final Jamal Confirmed Date Final Jamal Date Ultra Sound Latest Days Gestation 0 0 Menstrual History Last Menstrual Date Menses Monthly On Bcp Conception Prior Menses Frequency Hcg Plus Date Menarche Onset Age Delivery Information Delivery Date Delivery Type Labor Anesthesia Weeks Gestation Incision Type Labor Labor Length Hrs Delivered By Post Complications Tubal Sterilization Discharge Date Comments 5 Discharge Information Feeding Method Contraceptive Method Maternal HG B and HCT Levels
--- OUTSIDE RECORDS SUMMARY | 2024-08-31 11:50 | XMS_ITS | Data Portability ---
Author Organization [place] - [facility] [employer], Main Office Address [address] [place] [address] Assessment No assessment recorded. Plan of Treatment Reminders Order Date Submit Date Provider Last Modified By Organization Details Last Modified Time Details Appointments Medicare Wellness 15 2024 11:00A Junito Bush MD Not available Not available Not available Lab glycohemo globin, total, blood [address] [facility] (Lab), [address] [place], [address], 08/18/2024 16:16:05 CMP, serum or plasma [email or web address] [facility] (Lab), [address] [place], [address], 08/18/2024 16:16:17 lipid panel, serum [email or web address] [facility] (Lab), [address] [place], [address], 08/18/2024 16:16:29 glycohemo globin, total, blood 2023 024 [facility] (Lab), [address] [place], [address], 01/06/2024 20:53:37 CMP, serum or plasma 2023 024 [facility] (Lab), [address] [place], [address], 01/06/2024 21:41:23 microalbu min, urine 2023 024 [facility] (Lab), [address] [place], [address], 01/06/2024 20:48:58 vitamin D, 25-hydrox y, total, serum 2023 024 [facility] (Lab), [address] [place], [address], 01/10/2024 17:40:19 lipid panel, serum 2023 024 [facility] (Lab), [address] [place], [address], 01/06/2024 21:41:28 Referral physical therapist referral [address] [facility], [address] [place], [address], 03/26/2024 08:36:39 Procedures None recorded. Surgeries None recorded. Imaging MAMMO, screening , digital, bilateral 2023 024 [email or web address] [facility] ([facility]), [address] [place], [address], 07/21/2024 11:16:17 bone density [address] ([facility]), [address] [place], [address], 01/20/2024 08:41:15 Medication Orders amlodipin e 10 mg tablet 2023 024 [facility], [address], [place], [address], 06/16/2024 11:38:43 glimepiri de 2 mg tablet 2023 024 [facility], [address], [place], [place], [address], 05/18/2024 10:38:20 amlodipin e 5 mg tablet 2023 [facility], [address], [place], [place], [address], 05/18/2024 10:38:21 doxycycli ne hyclate 100 mg tablet [address] [facility], [address], [place], [place], [address], 05/18/2024 10:16:16 meloxicam 15 mg tablet [address] [facility], [address], [place], [place], [address], 05/18/2024 10:15:21 Patient TargetsNo targets recorded. Patient Instructions Encounter Date Encounter Id Patient Instructions Last Modified By Organization Details Last Modified Time 01/06/2024 [id number] dementia rating scale-2* [email or web address] Not available 01/08/2024 14:58:56 alcohol misuse* [email or web address] Not availabl e 01/08/2024 15:02:09 depression screening* [email or web address] Not available 01/08/2024 15:02:35 multi-dimensiona health assessment questionnaire* [email or web address] Not available 01/08/2024 14:36:37 advance directiv es: care instructions Not available 01/07/2024 13:29:20 advance care planning: care instructions Not available 01/07/2024 13:29:20 [place] Advance Directives Not available 01/07/2024 13:29:20 Personalized [facility] Plan and Screening Recommendations Advance Directives - Do you have one? No You have indicated that you are capable of preparing your advance care directive Advance Directives - Do we have your advance directive on file in your health record? No, please bring in a copy at your earliest convenience Primary Prevention/Interven tion (prevents or decreases the chance of common diseases from occurring) Smoking Risk: Non Smoker Alcohol Misuse Screening: Negative Weight: Appropriate Overwei ght continue your current weight loss efforts try to lose 5% of your body weight try to lose 10% of your body weight Physical activity: Need more exercise/physical activity minimum of 10-20 minutes of activity that causes mild breathlessness/day Nutrition: Good Refer to attached handout Heart-Healthy Diet: After Your Visit Refer to attached handout DASH Diet: After Your Visit Fall Risk (screened today): Low Refer to attached handout Preventing Falls: After your Visit Vaccines Pneumococcal: Ordered Recommended today Recommended today, but you have declined No further needed Influenza: Your next one in the fall of this year Chronic Disease Risks Stroke: Low Risk Intermediate Risk I have no recommendations Act natanael diagnosis, Continue current treatment plan Heart Attack: Low risk Intermediate Risk I have no recommendations Act natanael diagnosis, Continue current treatment plan Clogging of the Arteries: Low risk Intermediate Risk I have no recommendations Act natanael diagnosis, Continue current treatment plan Diabetes: Low Risk Intermediate Risk Active diagnosis, Continue current treatment plan Secondary Prevention/Interven tion (detects treatable diseases before they may cause symptoms, disability, or ) Breast Cancer Screening with mammogram: Your next mammogram: Ordered Cervical/Uterine/Ov rocio Cancer Screening: No screening necessary Osteoporosis Screening: Your next DEXA in: Ordered Date Screening Last Performed: 2021 Colon Cancer Screening: Colonoscopy Date Screening Last Performed: Eye Disease Screening: Dementia Risk: Low Depression Screening: Negative [email or web address] Not available 01/06/2024 13:55:21 05/18/2024 [id number] Personalized [facility] Plan and Screening Recommendations Advance Directives - Do you have one? No You have indicated that you are capable of preparing your advance care directive Advance Directives - Do we have your advance directive on file in your health record? No, please bring in a copy at your earliest convenience Primary Prevention/Interven tion (prevents or decreases the chance of common diseases from occurring) Smoking Risk: Non Smoker Alcohol Misuse Screening: Negative Weight: Appropriate Overwei ght continue your current weight loss efforts try to lose 5% of your body weight try to lose 10% of your body weight Physical activity: Need more exercise/physical activity minimum of 10-20 minutes of activity that causes mild breathlessness/day Nutrition: Good Refer to attached handout Heart-Healthy Diet: After Your Visit Refer to attached handout DASH Diet: After Your Visit Fall Risk (screened today): Low Refer to attached handout Preventing Falls: After your Visit Vaccines Pneumococcal: Ordered Recommended today Recommended today, but you have declined No further needed Influenza: Your next one in the fall of this year Chronic Disease Risks Stroke: Low Risk Intermediate Risk I have no recommendations Act natanael diagnosis, Continue current treatment plan Heart Attack: Low risk Intermediate Risk I have no recommendations Act natanael diagnosis, Continue current treatment plan Clogging of the Arteries: Low risk Intermediate Risk I have no recommendations Act natanael diagnosis, Continue current treatment plan Diabetes: Low Risk Intermediate Risk Active diagnosis, Continue current treatment plan Secondary Prevention/Interven tion (detects treatable diseases before they may cause symptoms, disability, or ) Breast Cancer Screening with mammogram: Your next mammogram: Ordered Cervical/Uterine/Ov rocio Cancer Screening: No screening necessary Osteoporosis Screening: Your next DEXA in: Ordered Date Screening Last Performed: 2021 Colon Cancer Screening: Colonoscopy Date Screening Last Performed: Eye Disease Screening: Dementia Risk: Low Depression Screening: Negative [email or web address] Not available 05/18/2024 10:10:57 Reason for Referral Physical Therapist Referral for Pain of left shoulder joint Referring Physician: Arvin Bush, Internal Medicine, Encounter Date: 03/12/2024 Results Created Date Observation Date Name Description Value Unit Range Abnormal Flag Note LastModifiedBy Organization Detail LastModifiedTime 01/06/20 24 01/06/2024 MICRO ALBUM IN RANDO M URINE microalbumin , urine <6.0 mg/L 0.0-[address] [facility] (Lab) [address] [place], [address], 01/06/2024 20:48:58 01/06/20 24 01/06/2024 HEMOG LOBIN A1C HA1C 8.7 % 4.0-6. 0 high Diabe catrina Scree saul Crite rafael: <5.7% Consi stent with absen ce of diabe catrina 5.7-6 .4% Consi stent with incre ased risk for diabe catrina (pred iabet es) >OR=6 .5% Consi stent with diabe catrina REFER ENCE: Diabe catrina Care 2016, 39(Pulido ppl.1 ):s13 -s22 Not Available [facility] (Lab) [address] [place], [address], 01/06/2024 20:53:37 01/06/20 24 01/06/2024 COMPR EHENS NATANAEL METAB OLIC PANEL sodium 137 mmol/ L 137-[address] [facility] (Lab) [address] [place], [address], 01/06/2024 22:01:07 01/06/20 24 01/06/2024 COMPR EHENS NATANAEL METAB OLIC PANEL potassium 3.7 mmol/ L 3.5-5. [address] [facility] (Lab) [address] [place], [address], 01/06/2024 22:01:07 01/06/20 24 01/06/2024 COMPR EHENS NATANAEL METAB OLIC PANEL chloride 107 mmol/ L 98-[address] [facility] (Lab) [address] [place], [address], 01/06/2024 22:01:07 01/06/20 24 01/06/2024 COMPR EHENS NATANAEL METAB OLIC PANEL carbon dioxide 25 mmol/ L 22-[address] [facility] (Lab) [address] [place], [address], 01/06/2024 22:01:07 01/06/20 24 01/06/2024 COMPR EHENS NATANAEL METAB OLIC PANEL anion gap 8.7 mmol/ L 14-[address] [facility] (Lab) [address] [place], [address], 01/06/2024 22:01:07 01/06/20 24 01/06/2024 COMPR EHENS NATANAEL METAB OLIC PANEL glucose 115 mg/dL 70-[address] [facility] (Lab) [address] [place], [address], 01/06/2024 22:01:07 01/06/20 24 01/06/2024 COMPR EHENS NATANAEL METAB OLIC PANEL BUN 10 mg/dL 8-[address] [facility] (Lab) [address] [place], [address], 01/06/2024 22:01:07 01/06/20 24 01/06/2024 COMPR EHENS NATANAEL METAB OLIC PANEL creatinine 0.47 mg/dL 0.66-1 [address] [facility] (Lab) [address] [place], [address], 01/06/2024 22:01:07 01/06/20 24 01/06/2024 COMPR EHENS NATANAEL METAB OLIC PANEL GFR >60 Refer ence Range : Chauvin ge GFR Healt hy Adult : >60 mL/mi n/1.7 3 m2 Chron ic Kidne y Disea se: 15-60 mL/mi n/1.7 3 m2 Kidne y Failu re: <15/m L/min /1.73 m2 www.n iddk. nih.g ov The MDRD study equat ion has not been valid ated in child justyna <18 years of age; pregn ant women ; the elder ly >85 years of age; or in some racia l or ethni c subgr oups, such as Hisoh nics. Outsi de the valid ated neetu eters , estim ated GFR is less accur ate, requi ring clini spencer judgm ent on a case- by-ca se basis . Clini spencer inter preta tion for other races and ages must be made by the clini timmy. The MDRD study equat ion has not been valid ated for the evalu ation of serum creat inine relat ed to nutri marco l statu s or medic ation usage . For perso ns <18 years of age, a pedia tric GFR calcu lator is avail able on the [facility] websi te: https ://ww w.kid johnson.olga go/yaneth ofess ional s/kdo qi/gf r_cal culat or Not Available [facility] (Lab) [address] [place], [address], 01/06/2024 22:01:07 01/06/20 24 01/06/2024 COMPR EHENS NATANAEL METAB OLIC PANEL alkaline phosphatase 74 U/L 38-126 Not Available [facility] (Lab) [address] [place], [address], 01/06/2024 22:01:07 01/06/20 24 01/06/2024 COMPR EHENS NATANAEL METAB OLIC PANEL alanine aminotransfe rase 57 U/L 0-35 high Not Available [facility] (Lab) [address] [place], [address], 01/06/2024 22:01:07 01/06/20 24 01/06/2024 COMPR EHENS NATANAEL METAB OLIC PANEL aspartate aminotransfe rase 70 U/L 15-37 high Not Available [facility] (Lab) [address] [place], [address], 01/06/2024 22:01:07 01/06/20 24 01/06/2024 COMPR EHENS NATANAEL METAB OLIC PANEL bilirubin, total 0.60 mg/dL 0.20-[address] [facility] (Lab) [address] [place], [address], 01/06/2024 22:01:07 01/06/20 24 01/06/2024 COMPR EHENS NATANAEL METAB OLIC PANEL calcium 9.1 mg/dL 8.4-[address] [facility] (Lab) [address] [place], [address], 01/06/2024 22:01:07 01/06/20 24 01/06/2024 COMPR EHENS NATANAEL METAB OLIC PANEL total protein 7.4 g/dL 6.3-8. [address] [facility] (Lab) [address] [place], [address], 01/06/2024 22:01:07 01/06/20 24 01/06/2024 COMPR EHENS NATANAEL METAB OLIC PANEL albumin 4.4 g/dL 3.0-4. [address] [facility] (Lab) [address] [place], [address], 01/06/2024 22:01:07 01/06/20 24 01/06/2024 COMPR EHENS NATANAEL METAB OLIC PANEL globulin 3.0 g/dL 2.6-4. [address] [facility] (Lab) [address] [place], [address], 01/06/2024 22:01:07 01/06/20 24 01/06/2024 COMPR EHENS NATANAEL METAB OLIC PANEL A/G ratio 1.5 ratio 1.0-2. [address] [facility] (Lab) [address] [place], [address], 01/06/2024 22:01:07 01/06/20 24 01/06/2024 LIPID PANEL cholesterol 201 mg/dL 140-19 9 high NIH FISH NSUS RECOM MENDA TION FOR ISABELLE STERO L: ADULT CHILD LOW RISK: <200 <170 BORDE RLINE : <200- 239 ----- HIGH RISK: >240 >[address] [facility] (Lab) [address] [place], [address], 01/06/2024 21:41:28 01/06/2001/06/2024 LIPID PANEL triglyceride s 175 mg/dL 0-150 high NIH FISH NSUS REPOR T RECOM MENDA TION FOR TRIGL YCERI CARLOS: ADULT CHILD LOW RISK: <150 ----- BODER LINE: 150-1 99 ----- HIGH RISK: >200 ----- Not Available [facility] (Lab) [address] [place], [address], 01/06/2024 21:41:28 01/06/20 24 01/06/2024 LIPID PANEL HDL cholesterol 39 mg/dL 40- low Not Available [facility] (Lab) [address] [place], [address], 01/06/2024 21:41:28 01/06/20 24 01/06/2024 LIPID PANEL LDL cholesterol, calculated 127 mg/dL 0-130 NIH FISH NSUS REPOR T RECOM MENDA TIONS FOR LDL: ADULT CHILD LOW RISK <130 <110 (OPTI MAL LDL) <100 ----- BORDE RLINE : 130-1 59 ----- HIGH RISK: >160 >130 A TRIGL YCERI DE RESUL T >400 INVAL IDATE S THE CALCU LATIO N FOR LDL FRACT IONAT ION - THE LDL RESUL T WILL NOT BE REPOR DAVID. Not Available [facility] (Lab) [address] [place], [address], 01/06/2024 21:41:28 01/06/20 24 01/10/2024 VITAM IN D 25-HY DROXY vd25oh 17.7 NG/mL 30-100 low Vitam in D Statu s: Defic ient: <20 ng/mL Insuf ficie nt: 20-29 ng/mL Suffi cient : 30-10 0 ng/mL Not Available [facility] (Lab) [address] [place], [address], 01/10/2024 17:32:42 07/13/20 24 07/13/2024 CULTU RE URINE urc ===== ===== ===== ===== ===== ===== ===== ===== ===== ===== ===== ===== ===== ===== ===== ===== ===== ===== ===== ===== ===== ===== ===== ===== Speci men NO.: [id number] Exam Statu s: Final Proce dure: CULTU RE URINE ===== ===== ===== ===== ===== ===== ===== ===== ===== ===== ===== ===== ===== ===== ===== ===== ===== ===== ===== ===== ===== ===== ===== ===== Iso/R esult : 01 Esche krystle a coli Antim icrob ic/Do se TONY Syste tony Urine __ ___ ___ Ampic illin <=8 S S Aztre onam <=4 S S Cefot axime <=2 Cipro floxa darius <=0.2 5 S S Genta micin <=2 S S Bioty pe [id number] Oxida se React ion N Extra Sensi tive Be NEG Amp/S ulbac rosas <=8/4 S S Ceftr iaxon e <=1 S S Cefta zidim e <=1 S S Cefaz bradly <=2 S S Cefep erika <=2 S S Cefur oxime <=4 S S Levof loxac in <=0.5 S S Merop enem <=1 S S Pip/T azo <=8 S S Trime th/Pulido lfa <=2/3 8 S S Tetra cycli ne <=4 S S Tobra mycin <=2 S S Nitro furan toin <=[address] [facility] (Lab) [address] [place], [address], 07/15/2024 08:51:46 07/13/20 24 07/13/2024 urina lysis , dipst ick Leukocytes (reference range: negative rl/ l) Large Not Available [facility] [address] [place], [address], 07/13/2024 15:52:56 07/13/20 24 07/13/2024 urina lysis , dipst ick Nitrite (reference rage: negative mg/dl) positi ve Not Available [facility] [address] [place], [address], 07/13/2024 15:52:56 07/13/20 24 07/13/2024 urina lysis , dipst ick Urobilinogen (reference range: 0.2-1 mg/dl) 0.2 Not Available [facility] [address] [place], [address], 07/13/2024 15:52:56 07/13/20 24 07/13/2024 urina lysis , dipst ick Protein (reference range: negative mg/dl) Trace Not Available [facility] [address] [place], [address], 07/13/2024 15:52:56 07/13/20 24 07/13/2024 urina lysis , dipst ick pH (reference range: 5-7) 6.0 Not Available [facility] [address] [place], [address], 07/13/2024 15:52:56 07/13/20 24 07/13/2024 urina lysis , dipst ick Blood (reference range: negative Hank/ l) Large Not Available [facility] [address] [place], [address], 07/13/2024 15:52:56 07/13/20 24 07/13/2024 urina lysis , dipst ick Specific [place] (reference range: 1.005-1.030) 1.025 Not Available [facility] [address] [place], [address], 07/13/2024 15:52:56 07/13/20 24 07/13/2024 urina lysis , dipst ick Ketone (reference range: negative mg/dl) Negati ve Not Available [facility] [address] [place], [address], 07/13/2024 15:52:56 07/13/20 24 07/13/2024 urina lysis , dipst ick Bilirubin (reference range: negative mg/dl) Modera te Not Available [place] [address] [place], [address], 07/13/2024 15:52:56 07/13/20 24 07/13/2024 urina lysis , dipst ick Glucose (reference range: negative mg/dl) Negati ve Not Available [facility] [address] [place], [address], 07/13/2024 15:52:56 07/13/20 24 07/13/2024 urina lysis , dipst ick Appearance Turbid Not Available [facility] [address] [place], [address], 07/13/2024 15:52:56 07/13/20 24 07/13/2024 urina lysis , dipst ick Color Yellow Not Available [place] [address] [place], [address], 07/13/2024 15:52:56 12/31/19 24 12/31/2023 XR, knee, 3 view [facility] [address] [place] [address] Patien t Name: JAIME HAIRSTON TE Access ion #: [id number] Sex: F : 1949 1 Dictat ed By: Yanci Canela Attend ing Physic zahida: SONIA BUSH Orderi ng Physic zahida: SONIA BUSH ER Exam Date: 2023 09:28 AM Exam Name: XR KNEE LT 3V Admitt ing Diagno sis(es ): CLINIC AL INDICA TION: LEFT KNEE PAIN TECHNI QUE: 3 radiog raphic views of the left knee were obtain ed. Compar magno: none FINDIN GS/IMP RESSIO N: There is no eviden ce of acute fractu re or disloc ation. The visual ized joint space is well mainta ined. The alignm ent is anatom ical. There is no radiop aque foreig n body. Electr onical ly Signed by: Yanci Canela at 2023 10:20: 26 AM Page [email or web address] [facility] (Imaging) [address] [place], [address], 01/02/2024 10:59:22 03/03/20 24 03/03/2024 DEXA, axial skele ton [facility] [address] [place] [address] Patien t Name: JAIME HAIRSTON TE Access ion #: [id number] Sex: F : 1949 1 Dictat ed By: Anika Mcgill Attend ing Physic zahida: SONIA BUSH Orderi renny Physic zahida: SONIA BUSH ER Exam Date: 2023 08:20 AM Exam Name: XR DEXA-H IPS PELVIS SPINE Admitt ing Diagno sis(es ): INDICA TION: 74 years old, Female ; postme nopaus al state. DEXA SCAN: BONE DENSIT Y REPORT : AP SPINE (L1-L4 ) : T Score: -2.5 LEFT HIP TOTAL : T Score: -0.1 RT HIP TOTAL : T Score: 0.3 TOTAL BILAT HIP AVG: T Score: 0.1 IMPRES AAKASH: Osteop orosis lumbar spine ------ ------ ------ ------ ------ ------ ------ ------ ----- *FRAX versio n 3.08. Fractu re probab ility calcul ated for an untrea david patien t. Fractu re probab ility may be lower if the patien t has receiv ed treatm ent. T-scor e: compar magno by aleah voss ([place]) to a young adult popula tion, matche d for sex and ethnic ity (used for postme nopaus al women and men >50 years) and classi fied by WHO criter ia. -1.0: normal <-1.0 to >-2.5: osteop enia -2.5: osteop orosis Page 1 [facility] [address] [place] [address] [phone] Patilance t Name: JAIME HAIRSTON Access ion #: [id number] Sex: F : 1949 1 Dictat ed By: Anika Mcgill Attend ing Physic zahida: [facility] Physic zahida: SONIA BUSH Exam Date: 2023 08:20 AM Exam Name: XR DEXA-H IPS PELVIS SPINE Admitt ing Diagno sis(es ): -2.5 plus fragil ity fractu re: severe osteop orosis Z-scor e: compar ed by [place] to an age, sex, and ethnic ity popula tion (used for premen opausa l women, men <50 years, and childr en instea d of T-scor e WHO criter ia 4) <-2.0: below expect ed range/ low bone densit y for age, and a cause should be sought Electr onical ly Signed by: Anika Mcgill at 2023 08:33: 13 AM Page [email or web address] [facility] ([facility]) [address] [place], [address], 03/11/2024 10:22:30 03/03/20 24 03/03/2024 scree saul breas t shelley, bilat [facility] [address] [facility] [address], [place] [address] Patien t Name: JAIME HAIRSTON Access ion #: [id number] Sex: F : 1949 1 Dictat ed By: Anika Mcgill Attend ing Physic zahida: SONIA BUSH ER Orderi ng Physic zahida: SONIA BUSH ER Exam Date: 2023 08:07 AM Exam Name: MG SCRN BREAST SHELLEY BILAT Admitt ing Diagno sis(es ): SCREEN ING MAMMOG VERENA WITH TOMOSY NTHESI S: REASON FOR EXAM: screen ing mammog verena COMPAR MAGNO: MG SCRN BREAST SHELLEY BILAT 3D on DOS: 12/19/22 , MG MAMMO DIGITA L UNILAT RT on DOS: 2, MG SCRN BREAST SHELLEY BILAT 3D on DOS: 10/18/21 TECHNI QUE: Bilate ral CC and MLO views obtain ed. Images were obtain ed using a Digita l [employer] nthesi s Unit. Standa rd 2D and 3D Tomosy nthesi s images were review ed. FINDIN GS: BREAST COMPOS ITION: There are scatte red areas of fibrog landul ar densit y in the bilate ral breast s. In the right breast , no asymme trical parenc hymal patter n, estuardo ectura l distor tion, pleomo rphic microc alcifi cation s or masses . In the left breast , no asymme trical parenc hymal patter n, estuardo ectura l distor tion, pleomo rphic microc alcifi cation s or masses . IMPRES AAKASH: No findin gs of malign ignacio. Recomm end annual mammog verena. BIRADS : 1 - Negati ve Electr onical ly Signed by: Anika Mcgill at 2023 08:44: 12 AM Page [email or web address] [facility] ([facility]) [address] [facility], [place], [address], 03/11/2024 10:58:38 07/10/20 24 07/09/2024 XR, knee, 4 or more view No observ ation record ed. [email or web address] Not Available 2023 15:12:58 Result Notes None recorded. Problems Name Problem SNOMED Code Status Onset Date Resolution Date Notes Provider Name and Address Organization Details Recorded Time Acute bronchiti s 33844800 Completed Not Available [facility] 3 14:14:52 Impacted cerumen of bilateral ears 05381001355 22653 Completed 202103/06/2022 Not Available [facility] 3 14:14:52 Impacted cerumen in right ear 03647634255 17746 Completed 202103/06/2022 Not Available [facility] 3 14:14:52 Benign essential hypertens ion 8849670 Active Not Available [facility] 3 14:14:52 Hearing loss 19824254 Active 2021 Not Available [facility] 3 14:14:52 Acute sinusitis 07390330 Completed Not Available [facility] 3 14:14:52 Otalgia 99681188 Completed Not Available [facility] 3 14:14:52 Mammograp hy abnormal 195532161 Active 2021 Not Available [facility] 3 14:14:52 Impacted cerumen 47767258 Completed Not Available [facility] 3 14:14:52 Steatosis of liver 373125325 Active Not Available [facility] 3 14:14:52 Abdominal pain 19029497 Completed Arvin Bush MD [address], [place], [address] , [place] - [facility] [employer] [facility] 3 16:43:15 Gastroeso phageal reflux disease 347229764 Active Not Available [facility] 3 14:14:52 Right inguinal hernia 858832115 Completed 202203/25/2023 SILVESTRE Maciel null, [facility] 3 10:23:10 Dysfuncti onal voiding 064303904 Active 2021 Not Available [facility] 3 14:14:53 Headache 72664907 Completed Not Available [facility] 3 14:14:53 Gastroent eritis 18550980 Completed Not Available [facility] 3 14:14:53 Pure hyperchol esterolem ia 587840508 Active Not Available [facility] 3 14:14:53 Chest pain 80868739 Active 2021 Not Available [facility] 3 14:14:53 Osteopeni a 542672923 Completed 201604/28/2018 Not Available [facility] 3 14:14:53 Malignant tumor of ovary 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 Active 1993 Not Available [facility] 3 14:14:53 Sinusitis 19326115 Completed Not Available [facility] 3 14:14:53 Neuropath y 133997119 Active 2017 Not Available [facility] 3 14:14:53 Acute urinary tract infection 328996796 Completed 202107/04/2022 RENETTA Mata, [facility] 3 14:20:01 Acute urinary tract infection 900182344 Completed 202103/06/2022 RENETTA Mata, [facility] 3 14:20:01 Trigger finger Completed Not Available [facility] 3 14:14:54 Herpes zoster 4019218 Active Not Available [facility] 3 14:14:54 Foot pain 80614838 Completed Not Available [facility] 3 14:14:54 Cough 85625006 Completed 202103/06/2022 Not Available [facility] 3 14:14:54 Upper respirato ry infection 08599660 Completed Arvin Bush MD [address], [address], [place], [address] , [facility] [employer] [facility] 4 10:59:40 Lower abdominal pain 81020171 Completed Not Available [facility] 3 14:14:54 Hyperlipi demia 17386989 Active Not Available [facility] 3 14:14:54 Carpal tunnel syndrome 89096627 Active 2017 Not Available [facility] 3 14:14:54 Essential hypertens ion 16239968 Active 2021 Not Available [facility] 3 14:14:54 Osteoporo sis 73956122 Active 2021 Not Available [facility] 3 14:14:54 Type B viral hepatitis 67516876 Active Not Available [facility] 3 14:14:55 Acute laryngiti s 0350309 Completed 202103/06/2022 Not Available [facility] 3 14:14:55 Urinary tract infectiou s disease 96025439 Completed Not Available [facility] 3 14:14:55 Diabetes mellitus 54115796 Active 2020 Not Available [facility] 3 14:14:55 Abnormal liver function 35809443 Completed Not Available [facility] 3 14:14:55 Fatigue 46005500 Completed 202105/01/2022 Not Available [facility] 3 14:14:55 Fatigue 51612679 Completed Not Available [facility] 3 14:14:55 Heart murmur 18580539 Active 2022 Arvin Bush MD [address], [facility] [address], [place], [address] , [facility] [employer] [facility] 3 11:08:32 Right inguinal pain [id number] 493172 Completed 202203/25/2023 Karmen Stufflebea n, RMA null, [place] [facility] 3 10:23:09 Inguinal pain 263254085 Active 2022 Arvin Bush MD [address], [address], [place], [address] , [place] [facility] 3 10:48:17 Abdominal pain 40091696 Active 2022 Arvin Bush MD [address], [address], [place], [address] , [place] [facility] 3 16:43:15 Anemia 013696476 Active 2022 Arivn Bush MD [address], [address], [place], [address] , [place] [facility] 3 08:31:56 Urinary symptoms 787608466 Active 2022 SILVESTRE Maciel null, [place] [facility] 3 16:11:13 Recurrent urinary tract infection 114036778 Active 2022 Doris Bermudez LPN null, [place] [facility] 3 17:10:06 Acute urinary tract infection 238476398 Active 2022 Doris Bermudez LPN null, [place] [facility] 3 14:20:01 Abdominal wall pain 252597130 Active 2023 Franklin messer MD [address], [address], [place], [address] , [place] [facility] 4 14:19:43 Pain in left arm 309270260 Active 2023 SILVESTRE Maciel null, [place] [facility] 4 13:48:21 Pain of left knee joint 78487724076 4107 Active 2023 Arvin Bush MD [address], [address], [place], [address] , [place] [facility] 4 10:16:44 Type 2 diabetes mellitus without complicat ion 723258496 Active 2023 Doris Bermudez LPN null, [facility] 4 10:10:59 Vitamin D deficienc y 20834613 Active 2023 Doris Bermudez LPN null, [place] [facility] 4 14:22:44 Upper respirato ry infection 19936109 Active 2023 Arvin Bush MD [address] [facility], [facility] [address], [place], [address] , [facility] 4 10:59:40 Pain of left shoulder joint 79405608995 553235 Active 2023 Arvin Bush MD [address] [facility], [facility] [address], [place], [address] , [facility] 4 11:00:39 Infected insect bite 117724757 Active 2023 Arvin Bush MD [address] [facility], [facility] [address], [place], [address] , [facility] 4 16:18:42 Pain of right knee joint 51774535902 4100 Active 2023 Alba Lagos MA null, [facility] 4 11:44:44 Knee pain Active 2023 Alba Lagos MA null, [facility] 4 15:01:00 Problem Notes None recorded. Procedures Surgical History Date Name Laterality Status Provider Name and Address Organization Details Recorded Time 4 Medicare Wellness CPT Code, subsequent completed SILVESTRE Jensen [facility] 05/18/2024 10:01:03 4 Advanced Care Planning completed Karmen Hernandez Celena [facility] 05/18/2024 10:01:03 4 Medicare Wellness CPT Code, subsequent completed Jovana Sheppard RN [facility] 01/06/2024 13:43:26 4 Advanced Care Planning completed KAYLIN Black [facility] [employer] 01/06/2024 13:47:57 3 Hernia Surgery completed Jo Ann Bosch MA [facility] [employer] 10/23/2022 13:07:19 2 Most Recent Bone Density completed Not Available [facility] 09/12/2022 14:12:08 Imaging Results Imaging Date Name Status LastModified by Organiz ation Details LastModified Time 12/31/2023 XR, knee, [email or web address] [facility] ([facility] [address] [place], [address], 01/02/2024 10:59:22 03/03/2024 DEXA, axial skeleton completed [email or web address] [facility] [address] [place], [address], 03/11/2024 10:22:30 03/03/2024 screening breast shelley, bilat completed [email or web address] [facility] [address] [place], [address], 03/11/2024 10:58:38 07/09/2024 XR, knee, 4 or more view completed [email or web address] Information not available 07/10/2024 15:12:58 Procedure Notes None recorded. Medical Equipment None Reported. Allergies Allergen ID Allergen Name Allergen Category Reaction Reaction Severity Criticality Documentation Date Start Date Code Code System Note Provider Name and Address Organization Details Recorded Time 05831 lisinopri l medicatio n cough Not available Not available 09/12/2022 79136 RxNorm Not Available [facility] 14:17:52 Medications Name Sig Start Date Stop Date Status Note LastModified by Organization Details LastModified Time losartan 50 mg tablet TAKE 1 TABLET BY MOUTH ONCE DAILY 08/07 completed Not Available Not Available Not Available amoxicillin 500 mg capsule Take 1 capsule 3 times a day by oral route for 7 days. active Not Available Not Available No t Available metformin 500 mg tablet TAKE 2 TABLETS BY MOUTH TWICE DAILY WITH FOOD active Not Available Not Available No t Available Augmentin 875 mg-125 mg tablet Take 1 tablet every 12 hours by oral route for 7 days. 07/24 completed Not Available Not Available Not Available hydrocodone 7.5 mg-ibuprofe n 200 mg tablet active Not Available Not Available Not Available neomycin-po lymyxin-hyd rocort 3.5 mg/mL-10,00 0 unit/mL-1 % ear solution INSTILL 2 DROPS INTO AFFECTED EAR(S) BY OTIC ROUTE 4 TIMES PER DAY active Not Available Not Available No t Available doxycycline hyclate 100 mg capsule Take 1 capsule twice a day by oral route for 7 days. 12/11 completed Not Available Not Available Not Available cefuroxime axetil 250 mg tablet active Not Available Not Available No t Available ibuprofen 800 mg tablet active Not Available Not Available Not Available benzonatate 200 mg capsule Take 1 capsule 3 times a day by oral route. 03/01 completed Not Available Not Available Not Available valacyclovi r 1 gram tablet Take 1 tablet 3 times a day by oral route. active Not Available Not Available No t Available clarithromy darius 500 mg tablet active Not Available Not Available Not Available hydrocodone 5 mg-acetamin ophen 325 mg tablet active Not Available Not Available No t Available meloxicam 15 mg tablet TAKE 1 TABLET BY MOUTH ONCE DAILY 05/18 completed Not Available Not Available Not Available Medrol (Florentino) 4 mg tablets in a dose pack take as directed 03/01 completed Not Available Not Available Not Available alendronate 70 mg tablet TAKE 1 TABLET BY MOUTH ONCE A WEEK active Not Available Not Available No t Available Zithromax Z-Florentino 250 mg tablet Take 2 TABLET EVERY DAY by oral route for 1 day. then 1 tab a day for 4 days 03/01 completed Not Available Not Available Not Available amlodipine 5 mg tablet Take 1 tablet every day by oral route. 2023 active Not Available Not Available Not Avai lable ciprofloxac in 500 mg tablet Take 1 tablet every 12 hours by oral route for 5 days. 2023 active Not Available Not Available Not Avai lable peg-electro lyte solution 420 gram oral solution DRINK HALF AT 5PM ON 4, THEN DRINK THE OTHER HALF AT 5AM ON 05/18 completed Not Available Not Available Not Available omeprazole 40 mg capsule,del ayed release Take 1 capsule every day by oral route. 05/20 completed Not Available Not Available Not Available Reglan 10 mg tablet Take 1 tablet 2 times a day by oral route as needed. 03/08 completed Not Available Not Available Not Available tramadol 50 mg tablet Take 1 tablet every 12 hours by oral route as needed. 2023 active Not Available Not Available Not Avai lable triamcinolo ne acetonide 0.1 % topical cream APPLY CREAM TOPICALLY TO AFFECTED AREA TWICE DAILY FOR 7 DAYS 05/18 completed Not Available Not Available Not Available glimepiride 2 mg tablet Take 1 tablet every day by oral route. 2023 active Not Available Not Available Not Avai lable Viread 300 mg tablet 02/22 completed Not Available Not Available Not Available ketorolac 10 mg tablet active Not Available Not Available Not Available Zofran 4 mg tablet Take 2 tablets 3 times a day by oral route. 10/21 completed Not Available Not Available Not Available oxycodone-a cetaminophe n 5 mg-325 mg tablet TAKE 1 TABLET BY MOUTH EVERY 4 TO 6 HOURS NEEDED 08/07 completed Not Available Not Available Not Available Tessalon Perles 100 mg capsule Take 2 capsules 3 times a day by oral route for 7 days. active Not Available Not Available No t Available clonidine HCl 0.2 mg tablet active Not Available Not Available Not Available famotidine 20 mg tablet TAKE 1 TABLET BY MOUTH TWICE DAILY 05/18 completed Not Available Not Available Not Available ciprofloxac in 0.3 % eye drops active Not Available Not Available No t Available amlodipine 10 mg tablet Take 1 tablet every day by oral route. 2023 active Not Available Not Available Not Avai labpaul cephalexin 500 mg capsule TAKE 1 CAPSULE BY MOUTH EVERY 12 HOURS FOR 10 DAYS 03/25 completed Not Available Not Available Not Available esomeprazol e magnesium 40 mg capsule,del ayed release TK ONE PO qd 08/07 completed Not Available Not Available Not Available gabapentin 300 mg capsule Take 1 capsule 3 times a day by oral route. 04/18 completed Not Available Not Available Not Available omeprazole 20 mg capsule,del ayed release Take 1 capsule every day by oral route for 30 days. 07/24 completed Not Available Not Available Not Available lisinopril 20 mg-hydrochl orothiazide 25 mg tablet TAKE ONE TABLET BY MOUTH TWICE A DAY 04/02 completed Not Available Not Available Not Available bisacodyl 5 mg tablet,michelle yed release TAKE ALL TABLETS BY MOUTH AT 8 AM ON 01/09/24 active Not Available Not Available No t Available zolpidem 5 mg tablet active Not Available Not Available No t Available ergocalcife rol (vitamin D2) 1,250 mcg (50,000 unit) capsule TAKE 1 CAPSULE BY MOUTH ONCE A WEEK 05/18 completed Not Available Not Available Not Available levofloxaci n 500 mg tablet Take 1 tablet every 24 hours by oral route for 10 days. active Not Available Not Available No t Available zolpidem 10 mg tablet Take 1 tablet as needed by oral route at bedtime. active Not Available Not Available No t Available Cipro 250 mg tablet Take 1 tablet twice a day by oral route for 7 days. 06/24 completed Not Available Not Available Not Available losartan 100 mg tablet Take 1 tablet every day by oral route. 2023 active CHERI NOV ok to rf Not Available Not Available Not Available doxycycline hyclate 100 mg tablet TAKE 1 TABLET BY MOUTH TWICE DAILY 05/18 completed Not Available Not Available Not Available Microlet Lancet USE ONE LANCET TO TEST BLOOD SUGAR TWICE A DAY active Not Available Not Available No t Available neomycin-po lymyxin-hyd rocort 3.5 mg-10,000 unit/mL-1 % ear drops,susp active Not Available Not Available N ot Available Estrace 0.01% (0.1 mg/gram) vaginal cream Insert 1 applicato rful every day by vaginal route in the morning. 01/05 completed Not Available Not Available Not Available nitrofurant oin monohydrate /macrocryst als 100 mg capsule TAKE 1 CAPSULE BY MOUTH EVERY 12 HOURS FOR 5 DAYS 12/15 completed Not Available Not Available Not Available entecavir 1 mg tablet 02/22 completed Not Available Not Available Not Available Contour Next Test Strips one strip to test blood sugars BID active Not Available Not Available No t Available Vitals Date Recorded Body height Body mass index (BMI) Body weight Heart rate Oxygen saturation Oxygen saturation in Arterial blood by Pulse oximetry Systolic blood pressure Diastolic blood pressure Provider Name and Address Organization Details Last Updated DateTime 4 152.4 cm 26.3 kg/m2 69786.6 1 g 69 /min 99 % 99 % 124 mm[Hg] 78 mm[Hg] Raegan Marquez Celena [facility] [employer] [facility] 4 12:13:34 Date Recorded Pain severity - 0-10 verbal numeric rating [Score] - Reported Provider Name and Address Organization Details Last Updated DateTime 01/06/2024 0 Jovana Sheppard RN [facility] [employer] [facility] 01/06/2024 13:43:49 Date Recorded Body height Body mass index (BMI) Body weight Body temperature Heart rate Oxygen saturation Oxygen saturation in Arterial blood by Pulse oximetry Systolic blood pressure Diastolic blood pressure Provider Name and Address Organization Details Last Updated DateTime 4 152.4 cm 26.2 kg/m2 63593.3 8 g 98.4 [degF] 68 /min 99 % 99 % 122 mm[Hg] 76 mm[Hg] Cassia Bowles [facility] [employer] [facility] 4 10:14:10 Date Recorded Body height Body mass index (BMI) Body weight Body temperature Heart rate Oxygen saturation Oxygen saturation in Arterial blood by Pulse oximetry Systolic blood pressure Diastolic blood pressure Provider Name and Address Organization Details Last Updated DateTime 4 152.4 cm 26.8 kg/m2 99291.1 5 g 97.7 [degF] 83 /min 97 % 97 % 124 mm[Hg] 80 mm[Hg] Karmen maxwell [facility] [employer] [facility] 4 16:01:38 Date Recorded Body height Body mass index (BMI) Body weight Body temperature Heart rate Oxygen saturation Oxygen saturation in Arterial blood by Pulse oximetry Systolic blood pressure Diastolic blood pressure Provider Name and Address Organization Details Last Updated DateTime 4 152.4 cm 26.4 kg/m2 62826.9 7 g 97.5 [degF] 82 /min 98 % 98 % 162 mm[Hg] 80 mm[Hg] Karmen maxwell Celena [facility] [employer] [facility] 4 10:07:23 Date Recorded Body height Body mass index (BMI) Body weight Body temperature Oxygen saturation Oxygen saturation in Arterial blood by Pulse oximetry Heart rate Systolic blood pressure Diastolic blood pressure Provider Name and Address Organization Details Last Updated DateTime 4 152.4 cm 27.1 kg/m2 40078.3 4 g 96.7 [degF] 98 % 98 % 85 /min 156 mm[Hg] 78 mm[Hg] Jocelin RENNER - [facility] 4 11:10:18 Social History Question Answer Notes LastModified by Organization Details LastModified Time Tobacco Smoking Status Never Smoker Not Available [employer] 09/12/2022 14:11:44 Do You Have An Advance Directive? No Papers Given [email or web address].[id number] Information not available 09/12/2022 What Is Your Level Of Alcohol Consumption? Occasional [email or web address].030 [id number] Information not available 09/12/2022 Are You Blind Or Do You Have Difficulty Seeing? No [email or web address].030 [id number] Information not available 09/12/2022 What Is Your Level Of Caffeine Consumption? Occasional [email or web address].030 [id number] Information not available 09/12/2022 In The 14 Days Before Symptom Onset, Have You Had Close Contact With A Laboratory-confi rmed COVID-19 While That Case Was Ill? No [email or web address].030 [id number] Information not available 09/12/2022 In The 14 Days Before Symptom Onset, Have You Had Close Contact With A Person Who Is Under Investigation For COVID-19 While That Person Was Ill? No [email or web address].030 [id number] Information not available 09/12/2022 Are You Currently Employed? Yes [email or web address] Information not available 01/06/2024 Are You Deaf Or Do You Have Serious Difficulty Hearing? Yes [place] In Left Ear, Hearing Aid MIGRATION.030 [id number] Information not available 09/12/2022 What Type Of Diet Are You Following? 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 7 MIGRATION.030 [id number] Information not available 09/12/2022 Have There Been Any Changes To Your Family Or Social Situation? No [email or web address] Information not available 01/06/2024 What Is The Fluoride Status Of Your Home? Fluoridated MIGRATION.030 [id number] Information not available 09/12/2022 Do You Use Insect Repellent Routinely? No MIGRATION.0301 [id number] Information not available 09/12/2022 Where Do You Live? [facility] MIGRATION.0301 [id number] Information not available 09/12/2022 Presence Of Domestic Violence No [email or web address] Information not available 01/06/2024 Are You Able To Care For Yourself? Yes [email or web address] Information not available 01/06/2024 Are You Blind Or Do Yo Have Difficulty Seeing? No [email or web address] Information not available 01/06/2024 Are You Deaf Or Do You Have Serious Difficulty Hearing? No [email or web address] Information not available 01/06/2024 General Stress Level? Moderate [email or web address] Information not available 01/06/2024 Live Alone Of With Others? With Others [email or web address] Information not available 01/06/2024 Do You Have A Medical Power Of Associate Professor Of Communication? No [email or web address] Information not available 01/06/2024 What Was The Date Of Your Most Recent Tobacco Screening? 01/06/2024 [email or web address] Information not available 01/06/2024 Have You Ever Been Counseled For Unhealthy Alcohol Use? No [id number].0301 [id number] Information not available 09/12/2022 Do You Have Any Pets? Yes [email or web address] Information not available 01/06/2024 What Is Your Relationship Status? MIGRATION.0301 [id number] Information not available 09/12/2022 Do You Use Your Seat Belt Or Car Seat Routinely? Yes MIGRATION.0301 [id number] Information not available 09/12/2022 Do You Have Smoke And Carbon Monoxide Detectors In Your Home? Yes MIGRATION.0301 [id number] Information not available 09/12/2022 Are You Passively Exposed To Smoke? No [email or web address] Information not available 01/06/2024 Are There Any Smokers In Your House? No [email or web address] Information not available 01/06/2024 What Types Of Sporting Activities Do You Participate In? None [email or web address] Information not available 01/06/2024 Do You Feel Stressed (tense, Restless, Nervous, Or Anxious, Or Unable To Sleep At Night)? [id number] [email or web address] Information not available 01/06/2024 Do You Use Any Illicit Or Recreational Drugs? No MIGRATION.0301 [id number] Information not available 09/12/2022 Do You Use Sunscreen Routinely? No MIGRATION.0301 [id number] Information not available 09/12/2022 Have You Recently Traveled Abroad? No MIGRATION.0301 [id number] Information not available 09/12/2022 Do You Have Any Dietary Restrictions? No MIGRATION.0301 [id number] Information not available 09/12/2022 Do You Or Have You Ever Used Any Other Forms Of Tobacco Or Nicotine? No [email or web address] Information not available 01/06/2024 How Many Days In The Past Year Have You Consumed 4 Or More Drinks? 0 [email or web address] Information not available 01/06/2024 Sex: Unknown Functional Status Question Answer Note LastModified by [employer] Details LastModified Time Do you have difficulty walking or climbing stairs? No [id number] Information not available 09/12/2022 Do you have transportation difficulties? No [id number] 026 Information not available 09/12/2022 Are you able to walk? YESWOREST MIGRATION.[id number] 026 Information not available 09/12/2022 Do you have difficulty doing errands alone? No [id number] 026 Information not available 09/12/2022 Are you able to care for yourself? Yes [id number] 026 Information not available 09/12/2022 Do you have difficulty dressing or bathing? No MIGRATION.[id number] 026 Information not available 09/12/2022 What is your exercise level? Moderate [id number] 026 Information not available 09/12/2022 Mental Status Question Answer Note LastModified by Organizat [employer] Details LastModified Time Do you have difficulty concentrating, remembering or making decisions? No [id number] Information not available 09/12/2022 Family History Relationship Description Onset Age of this Age Resolved Age Notes LastModified by Organization Details LastModified Time Father No current problems or disability [id number].793 [id number] Not available 09/12/2022 14:12:09 Mother No current problems or disability MIGRATION.032 [id number] Not available 09/12/2022 14:12:09 Medical History Condition Response DIABETES, TYPE Y GERD/NAUSEA Y HYPERTENSION Y HIGH CHOLESTEROL / HYPERLIPIDEMIA Y Gynecological History Statement/Question Response Date of Last Pap Date of Last Mammogram 10/18/2021 Date of Last Colonoscopy Most Recent Bone Density 03/06/2022 Obstetrics History GPAL:G 0 P 0 0 0 0 Immunizations Vaccine Type Date Status Note Provider Nam e and Address Organization Details Recorded Time TST-PPD intradermal 3 completed Not Available [facility] 09/12/2022 14:17:45 Influenza, high-dose, trivalent, PF 2 completed Not Available [facility] 09/12/2022 14:17:45 DTaP 1 completed Not Available [facility] 09/12/2022 14:17:45 SARS-COV-2 (COVID-19) vaccine, UNSPECIFIED 1 completed Not Available [facility] 09/12/2022 14:17:45 Influenza, high-dose, trivalent, PF 7 completed Not Available [facility] 09/12/2022 14:17:45 Influenza, high-dose, quadrivalent, PF 2 completed Not Available [facility] 09/12/2022 14:17:45 pneumococcal polysaccharide PPV23 2 completed Not Available [facility] 09/12/2022 14:17:46 Pneumococcal conjugate PCV 13 1 completed Not Available [facility] 09/12/2022 14:17:46 Influenza, high-dose, quadrivalent, PF 0 completed Not Available [facility] 09/12/2022 14:17:46 Influenza, high-dose, trivalent, PF 8 completed Not Available [facility] 09/12/2022 14:17:46 Influenza, high-dose, trivalent, PF 7 completed Not Available [facility] 09/12/2022 14:17:46 Influenza, high-dose, trivalent, PF 5 completed Not Available [facility] 09/12/2022 14:17:46 Influenza, split virus, trivalent, PF 4 completed Not Available [facility] 09/12/2022 14:17:46 Influenza, high-dose, trivalent, PF 4 completed SILVESTRE [place], [place] - [place] Citizen.VC [facility] 05/18/2024 13:23:54 Past Encounters Encounter ID Performer Location Encounter Start Date Encounter Closed Date Diagnosis/Indication Diagnosis SNOMED-CT Code Diagnosis ICD10 Code Diagnosis Note [id number] [facility] [address] [facility] [address] 04/19/2021 00:00:00 04/19/2021 17:26:39 [id number] [facility] [address] [place] [address] 08/18/2021 00:00:00 08/18/2021 09:44:54 [id number] _ATHENA_M IGRATION_ DEFAULT_1 _1 , 08/30/2021 00:00:00 08/30/2021 16:23:59 [id number] [facility] [address] [place] [address] 10/31/2021 00:00:00 10/31/2021 16:46:53 [id number] [facility] [address] [place] [address] 12/13/2021 00:00:00 12/13/2021 10:36:55 [id number] [facility] [address] [place] [address] 03/08/2022 00:00:00 03/08/2022 11:02:29 [id number] [facility] [address] [place] [address] 04/02/2022 00:00:00 04/02/2022 10:47:19 [id number] [facility] Urology [address], [address] [place] [address] 06/21/2022 00:00:00 06/21/2022 09:55:53 [id number] [facility] [address] [place] [address] 07/04/2022 00:00:00 07/04/2022 11:21:31 [id number] [facility] General Surgery [address] [place], [place] [address]., [address] [place] [address] 09/06/2022 00:00:00 09/06/2022 13:54:51 [id number] Franklin messer MD [facility] General Surgery [address] [address] 10/23/2022 12:16:05 10/23/2022 13:36:41 [id number] Arvin Bush MD [facility] Internal Med [address] [facility] [address] 11/14/2022 10:30:48 11/14/2022 11:19:03 Diabetes mellitus 59223885 E11.9 labs Hyperlipidemia 98634679 E78.5 under control, Osteoporosis 07196194 M8 1.0 was on meds has improved Benign ess ential hypertension 0038746 I10 under control Gastroesop hageal reflux disease 298487270 K21.9 better with meds Adult heal th examination 908720512 Z00.00 COLONOSCOP Y- 2011 Mammo- 10/2021- ordered Dexa- 02/2022 Flu- 07/04/2022 COVID- all three P13- PV23- 10/31/21 Screening mammography 24 228881 Z12.31 Heart murmur 88175144 R0 1.1 [id number] Franklin messer MD [facility] General Surgery [address] [address] 01/22/2023 10:32:31 01/22/2023 14:05:57 Right inguinal pain [id number] 3676632 R10.31 [id number] Arvin Bush MD [facility] Internal Med [address] [facility] [address] 03/25/2023 10:15:45 03/25/2023 10:51:23 Diabetes mellitus 94496744 E11.9 advised to watch diet, labs next time Hyperlipidemia 48342172 E78.5 under control, Osteoporosis 19087094 M8 1.0 was on meds has improved Benign ess ential hypertension 1476610 I10 watch Gastroesop hageal reflux disease 891279719 K21.9 better with meds Adult heal th examination 547423759 Z00.00 COLONOSCOP Y- 2011, orderMammo - 3Dex a- 02/2022Flu - 07/04/2022 COVID- all prmsfM76-0 09/05/20PV2 3- 10/31/21 Heart murmur 07496139 R0 1.1 US-echo 12/26/22 Screening for malignant neoplasm of colon 254622422 Z12.11 Inguinal pain 478865600 R10.2 likely from the previous surgery [id number] Karmen pichardo A [facility] Internal Med [address] [facility] [address] 05/13/2023 16:03:31 05/13/2023 16:47:35 Abdominal pain 58858633 R10.9 [id number] Franklin messer MD [facility] [place] [address] [place] [address] 07/18/2023 10:56:47 07/18/2023 15:44:04 Abdominal wall pain 125763322 R10.9 [id number] Arvin Bush MD [facility] Internal Med [address] [facility] [address] 08/06/2023 10:16:11 08/06/2023 10:54:09 Diabetes mellitus 85483583 E11.9 advised to watch diet, labs Hyperlipidemia 64679823 E78.5 under control, Osteoporosis 73394071 M8 1.0 was on meds has improved Benign ess ential hypertension 2898647 I10 increasing Losartan to 100mg Heart murmur 71336261 R0 1.1 US-echo 12/26/22 Gastroesop hageal reflux disease 183742524 K21.9 better with meds Adult heal th examination 095635867 Z00.00 COLONOSCOP Y- 2011, ORDEREDMam mo- 3Dex a- 02/2022Flu - 07/04/2022 COVID- all [id number] 09/05/20PV2 3- 10/31/21 Screening for malignant neoplasm of colon 114378058 Z12.11 Inguinal pain 591021775 R10.2 from the previous surgery [id number] Arvin Bush MD [facility] [place] [address] [facility] [address] 12/16/2023 09:55:04 12/16/2023 10:22:21 Pain of left knee joint 4612249185 59840 M25.562 voltaren gel [id number] Arvin Bush MD [facility] [place] [address] [facility] [address] 01/06/2024 12:09:42 01/06/2024 13:09:49 Diabetes mellitus 06033146 E11.9 advised to watch diet, labs Hyperlipidemia 04304963 E78.5 under control, Osteoporosis 70914764 M8 1.0 was on meds has improved Benign ess ential hypertension 8018743 I10 better Heart murmur 77208695 R0 1.1 US-echo 12/26/22 Gastroesop hageal reflux disease 434023390 K21.9 better with meds Adult heal th examination 272454390 Z00.00 COLONOSCOP Y- 2011, ORDEREDMam mo- 3Dex a- 02/2022Flu - 07/04/2022 COVID- all fzckmO62-8 09/05/20PV2 3- 10/31/21 Inguinal pain 751867990 R10.2 from the previous surgery Screening mammography 24 932282 Z12.31 Long-term drug therapy 580580251 Z79.899 Postmenopausal state 764 [address]166 Z78.0 Screening for disorder 119511921 Z13.9 [id number] Arvin Bush MD [facility] [place] [facility] [address] [facility] [address] 03/12/2024 09:50:55 03/12/2024 11:04:16 Upper respiratory infection 83944292 J06.9 getting better, otc discussed Abdominal pain 10086610 R10.9 all the w/u neg, could be due to constipati on, take senokot 2 tabs a dayto see gyne Pain of le ft shoulder joint 4819901791 3683046 M25.512 tendonitis [id number] Arvin Bush MD [facility] [place] [facility] [address] [facility] [address] 04/07/2024 15:53:40 04/07/2024 16:21:05 Infected insect bite 954896905 L08.9 [id number] Arvin Bush MD [facility] [place] [address] [facility] [address] 05/18/2024 09:52:38 05/18/2024 10:42:36 Diabetes mellitus 04367288 E11.9 keep watching diet. labs Hyperlipidemia 43680433 E78.5 under control, Osteoporosis 78218986 M8 1.0 was on meds has improved Benign ess ential hypertension 7249799 I10 add amlodipine Heart murmur 87987167 R0 1.1 US-echo 12/26/22 Gastroesop hageal reflux disease 236961347 K21.9 better with meds Adult heal th examination 926108918 Z00.00 COLONOSCOP Y- 2023- Not in chartMammo - 03/03/2024 Dexa- 03/03/2024 Flu- 05/18/2024 COVID- all pdersH32-3 09/05/20PV2 3- 10/31/21 Inguinal pain 425711918 R10.2 has another hernia and needs surgery Administra tion of influenza vaccine 95018814 Z23 [id number] Arvin Bush MD [facility] [address] [facility] [address] 06/16/2024 10:55:37 06/16/2024 11:41:16 Benign essential hypertension 4142629 I10 ^ amlodipine dosewatch sodium intake Health Concerns Section Related Observation LastModified by Organization Detai ls LastModified Time None Recorded Concern Status LastModified by Organization Details LastModified Time None Recorded Advance Directives Directive N: papers given Payers Encounter Date Sequence Insurance Name Policy Number Policy Clemente Covered Member ID Clemente Member ID Guarantor Name 01/06/2024 1 MEDICARE B: [facility] Ary Hairston [id number] Ary Hairston 01/06/2024 2 [employer] OPTIONS (MEDICARE SUPPLEMENT) Ary Hairston [id number] Ary Hairston 03/12/2024 1 MEDICARE B: [employer] MEDICARE Ary Wild Marika [id number] Ary Wild Marika 03/12/2024 2 [employer] OPTIONS (MEDICARE SUPPLEMENT) Ary Wild Marika [id number] Ary Wild Marika 04/07/2024 1 MEDICARE B: [employer] MEDICARE Ary M Marika [id number] Ary M Marika 04/07/2024 2 [employer] OPTIONS (MEDICARE SUPPLEMENT) Ary M Marika [id number] Ary M Marika 05/18/2024 1 MEDICARE B: [employer] MEDICARE Ary M Marika [id number] Ary M Marika 05/18/2024 2 [employer] OPTIONS (MEDICARE SUPPLEMENT) Ary M Marika [id number] Ary Hairston 06/16/2024 1 MEDICARE B: [employer] MEDICARE Ary M Marika [id number] Ary Junito Marika 06/16/2024 2 [employer] OPTIONS (MEDICARE SUPPLEMENT) Ary Hairston [id number] Ary Hairston Notes Date Note Type Note Provider Name and Address Organization Details Recorded Time 01/06/2024 text/html Here for routine f/u. compliant to medications, no side affects,PT IS FASTING Colonoscopy is scheduled for Saturday HTN- BP today is 124/78Meds- Losartan 50mg dailyHyperlipidemia- controlling diet and under control, labs dueMeds- noneDM- diagnosed in 03/03, controlling diet, accu checks 137Has not lost or cmpfqsS5C was 7.5 (08/20/23)No Hypoglycemia ,DM eye exam- Has appt in Feb 2024- [facility]- Metformin 500mg BID, avoid statins due to h/o liver diseaseOsteoporosis-wa s on meds, Now takes OTC Caltrate BID. DEXA 03/05Neuropathy- was on gabapentin, had some kind of shots from the chiropractor and feeling much better , now taking otcFatty liver- watching diet, CT scan 03/03 showed hepatomegaly , avoid statinsHep B - treated and cured per her, was seeing hepatology in the past, not any moreOvarian cancer- 1994, no recurrence, seeing gyneGERD- symptoms are much better, does not have to take meds dailyMeds-Famotidine 20mg BID Right inguinal hernia surgery 11/04, recovering Arvin Bush MD [address], [address], [place], [address], [employer] 01/07/2024 13:29:26 03/12/2024 text/html Pt is here today C/o sore throat, States that 3 weeks ago she had a sinus infection and the soreness in her throat never went away. Thinks it may be from the drainage. she was treated with otc. no cpcough in the morning Still C/O Right sided Lower abdomen pain , always feel like there is some swellingrecently had colonoscopy and was told nl ( no report )she used to have bm x 2 a day, now every other day Left shoulder pain x a month, hard time to sleep on the left side, no injury Arvin Bush MD [address], [address], [place], [address], [employer] 03/12/2024 11:02:41 04/07/2024 text/html She is here toda y with a few small bumps on the left side if her face,States that she woke up yesterday morning with these bumps, thinks she had gotten bit by a spider, went to . They ruled out shingles and prescribed her a cortisone cream. states that the left side does feel like it has fever in it.no fevernot warmThis morning she had diarrhea and had vomited Arvin Bush MD [address], [address], [place], [address], [employer] 04/07/2024 16:19:38 05/18/2024 text/html Here for routine f/u. compliant to medications, no side affects,PT IS FASTING ( Medicare / [facility] ) Blood pressure has been running high. Was at Dr. Aguila and her b/p was 202/109, now better butstill high Has another Hernia- Needs surgery but has not scheduled yet HTN- BP today isMeds- Losartan 100mg dailyHyperlipidemia- controlling diet and under control, labs dueMeds- noneDM- diagnosed in 03/03, controlling diet, accu checks 137-144Has lost 2 lbsA1C was 8.7 (01/06/24)No Hypoglycemia ,DM eye exam- Has appt in Feb 2024- [facility]- Metformin 500 mg BID, Glimepiride 2mg QD. (needs refills)avoid statins due to h/o liver diseaseOsteoporosis-wa s on meds, Now takes OTC Caltrate BID. DEXA 03/05Neuropathy- was on gabapentin, had some kind of shots from the chiropractor and feeling much better , now taking otcFatty liver- watching diet, CT scan 03/03 showed hepatomegaly , avoid statins, mildly elevated LFTHep B - treated and cured per her, was seeing hepatology in the past, not any moreOvarian cancer- 1994, no recurrence, seeing gyneGERD- symptoms are much better, does not have to take meds dailyMeds-Famotidine 20mg BID Right inguinal hernia surgery 11/04, recovering Arvin Bush MD [address], [address], [place], [address], [employer] 05/18/2024 10:39:40 06/16/2024 text/html Pt is here today for a 1 month follow up on her blood pressureLast visit it was 162/80 and Amlodipine 5mg was added. Today it is 156/78no side effectsAlso C/o RT hernia, pt has surgery 08/2024 Arvin Bush MD [address], [address], [place], [address], [employer] 06/16/2024 11:40:08 OBGyn Episode No OBEpisode recorded.
--- OUTSIDE RECORDS SUMMARY | 2024-08-31 11:50 | XMS_ITS | Clinical Summary ---
Author Organization [facility] Address [address] [place] [address] Care Team Providers Care Backup Administrative Coordinator Name Role Phone Arvin Bush MD Primary Care Provider [phone] Allergies No known active allergies Medications lisinopril 5 MG tablet Take 5 mg by mouth daily. Active esomeprazole 40 MG capsule Take 40 mg by mouth every morning before breakfast. Active multivitamin tablet Take 1 tablet by mouth daily. Active Active Problems Problem Noted Date Diagnosed Date Chest pain 11/05/2017 Assessment & Plan (11/06/2017 11:50 AM CDT): Acute, uncontrolled. History and physical consistent with typical angina. Heart Score 4. - Continuous cardiac monitoring with telemetry - S/p 325mg ASA in the ED, continue ASA 81mg daily - Nitroglycerin SL 0.4mg Q5min prn for chest pain suspicious for cardiac etiology - Continue to trend troponins at 0, 6, 12 hours - NPO at 0000 for stress test tomorrow - A1C 6, no current dx of diabetes. - ASCVD -19.6, starting high intensity statin at discharge. Family History Medical History Relation Comments Cancer Brother Hypertension Brother RI Brother Cancer Father Cancer Mother Diabetes Mother Diabetes Sister Early Sister Heart Disease Sister Hypertension Sister RI Sister Mental Health Sister PACEMAKER Sister SISTER THAT IS S TILL ALIVE Relation Status Comments Brother Alive Father PROSTATE CA Mother KIDNEY/LUNG/BRAI N CA Sister Social History Tobacco Use Types Packs/Day Years Used Date Smoking Tobacco: Never Smokeless Tobacco: Never Alcohol Use Standard Drinks/Week Comments Yes 0 (1 standard drink = 0.6 oz pur e alcohol) occassionally Comments Unknown Sex and Gender Information Value Date Recorded Sex Assigned at Not on file Legal Sex Female 2:40 PM CDT Gender Identity Not on file Sexual Orientation Not on file Last Filed Vital Signs Vital Sign Reading Time Taken Comments Blood Pressure 145/66 11/06/2017 3:00 PM CDT Pulse 74 11/06/2017 3:00 PM CDT Temperature 37.1 C (98.7 F) 11/06/2017 3:00 PM CDT Respiratory Rate 18 11/06/2017 3:00 PM CDT Oxygen Saturation 100% 11/06/2017 3:00 PM CDT Inhaled Oxygen Concentration - - Weight 62.4 kg (137 lb 9.1 oz) 11/05/2017 3:04 P M CDT Height 152.4 cm (5') 11/05/2017 3:04 PM CDT Body Mass Index 26.87 11/05/2017 3:04 PM CDT Plan of Treatment Health Maintenance Due Date Last Done Comments Colorectal Cancer Screening Colonoscopy (10 Years) 1950 Hepatitis C 02/24/1970 DTaP, Tdap and Td Vaccines ( 1 - Tdap) 02/24/1971 Mammogram Screening 1992 Zoster Vaccines (1 of 2) 02/24/2002 Annual Medicare Wellness Visit 02/24/2017 Dexa Scan (General) 02/24/2017 Pneumococcal Vaccine: 65+ Ye ars (1 of 1 - PCV) 02/24/2017 COVID-19 Vaccine ( - 2023-2 5 season) 2024 Influenza Adult (#1) 2024 RSV Immunization or 60+ Years (1 - 1-dose 75+ series) 02/24/2027 Meningococcal B Vaccine Aged Out No l onger eligible based on patient's age to complete this topic Meningococcal Vaccine Aged Out No blu dima eligible based on patient's age to complete this topic RSV Immunizations Under 20 Months Aged Out No longer eligible based on patient's age to complete this topic Insurance MEDICARE [employer] MEDICARE [place] [id number] [address] MEDICARE Advance Directives * Full Code (Latest Code Status on File) Date Activated Date Inactivated Comments 11/05/2017 6:03 PM 11/06/2017 8:03 PM Care Teams Backup Administrative Coordinator Relationship Specialty Start Date End Date Arvin Bush MD PCP - General INTERNAL MEDICINE 11/05/17
== END 2024-08-31 09:02 | disposition home or self-care (01) ==
LOC: ANHSURGERY 09:09
PROVIDERS: PCP Internal Medicine; Visit Provider Surgery
DX: Z01.818 Encounter for other preprocedural examination (principal); K40.31 Unilateral inguinal hernia, with obstruction, without gangrene, recurrent; K40.91 Unilateral inguinal hernia, without obstruction or gangrene, recurrent; R91.8 Other nonspecific abnormal finding of lung field
CPT/HCPCS: 36415; 71046; 80048; 85025; 86850; 86900; 86901; 93005

== ENCOUNTER 2024-09-09 00:42 | Day surgery (SDC) | payer MEDICARE, SELFPAY ==
[2024-08-26 13:13] VITALS: BMI 26.2
--- NOTE | 2024-08-26 13:22 | PC.NURSE ---
Report to the Outpatient Waiting Room, entrance under the green pavilion located off [facility], at time _0900am on date __09/09/24 . Planned Procedure Time: __1100am .? Time changes happen often and if your time is changed the preop area will call you the afternoon before. - You and your visitor will be asked to self-screen and do not enter if you have any COVID symptoms. Please call surgeon if you need to reschedule. - A mask is optional within the hospital at this time. Patients may have clear liquids (water, carbonated beverages, clear teas, apple juice) until 3 hours prior to surgery with a maximum of 20 ounces. - No food from midnight until time of surgery and no smoking, or chewing tobacco (or any form of nicotine). No chewing gum, candy or mints. (0800am) Take only the following medications with a SIP of water on the morning of surgery: None DO NOT STOP ANY OF YOUR OTHER PRESCRIPTION MEDICATIONS PRIOR TO SURGERY EXCEPT THE FOLLOWING Hold all vitamins and supplements for 3 days per anesthesiologist. Date to take last dose____09/05/24 Please no make-up, nail congolese, hairspray, perfume, deodorant, or body powder the day of surgery.? No jewelry (including any body piercings) or valuables the day of surgery, leave them at home.? Please take a shower or bath the night before, or the morning of, surgery with an antibacterial soap.? Wear comfortable, loose fitting clothing.? - Jewelry must be removed prior to entering the operating room.? Rings and piercings that are not removed may be cut off. - The hospital will not accept responsibility for valuables.? - Please leave all valuables, including medications, at home the day of surgery. If you are going home after surgery, a licensed light truck driver must drive you home.? - NO public transportation without another adult if you receive anesthesia. - We recommend that an adult stay with you for 24 hours following discharge. - We also recommend that you do not drive, make important decision, drink alcoholic beverages, or take any drugs that were not prescribed by your health care provider for at least 24 hours after your discharge time. Follow any additional instructions given to you from your surgeon. Telephone instructions given to _Patient and asked if any additional questions and then verbalized understanding. Patient advised to call surgeon office or pre surgery nurse liaison [phone] if any additional questions.
--- NOTE | 2024-09-08 11:49 | PM.SD2 ---
Same Day Admit/Disch: HPI History of Present Illness Chief complaint: recurrent right incarcerated hernia Narrative: Ary Hairston is a 74 year old female who underwent open right inguinal hernia repair in October of 2021. About 6 months after the repair, she felt a pop in the right groin in since then has noticed discomfort particularly with going up and down stairs. She had a CT scan as well as an ultrasound both of which show she has a right inguinal hernia. Exam shows a subcutaneous nodule that is not reduce and that is tender. She is taken to the operating room at this time for robotic laparoscopic repair of incarcerated recurrent right inguinal hernia. She has a history of diabetes and hypertension but does not take insulin. She also has a remote history of ovarian cancer. She is otherwise healthy. [facility] Past Medical History Medical History History of ovarian cancer Hard of hearing Diabetes type 2, controlled GERD (gastroesophageal reflux disease) Neuropathy Aftercare following surgery (08/10/19) Fracture of left ankle, lateral malleolus Hypertension Surgical History Surgical History Status post open reduction and internal fixation (ORIF) of fracture (08/10/19) Family History Family History Sibling Carcinoma of colon Father Malignant neoplasm of prostate Mother Family history of lung cancer Social History Social History Smoking status: Never smoker Second hand tobacco smoke exposure: No Alcohol intake: current Alcohol use details: 1 per month Substance use: never Substance use type: does not use Do You Feel Safe in your Home?: Yes Lack of Transportation: No Lack of Food: Never True Current Housing: I Have Housing Concerned About Future Housing: No Difficulty Paying Gas/Electric Bills: No Difficulty Paying for Meds: No Currently Unemployed: No Education: High School Diploma/GED Living arrangements: with family Additional living arrangements comments: Gender identity (if verbalized by the patient): Female Spiritual care concerns: No Same Day Admit/Disch: Med Pre-admit Medications Home Medications ?Medication ?Instructions ?Recorded ?Confirmed ?Type metformin 500 mg tablet 500 mg PO BID 11/17/20 09/09/24 History famotidine 20 mg tablet 20 mg PO BID 11/21/20 09/09/24 History glimepiride 2 mg tablet 1 mg PO DAILY 08/26/24 09/09/24 History losartan 100 mg tablet 100 mg PO DAILY 08/26/24 09/09/24 History ewsamnyw-jcl-kgurfy-choline-bioflavonoids 1 tablet PO DAILY 08/26/24 09/09/24 History 111 mg-111 mg-100 mg tablet ibuprofen 600 mg tablet 600 mg PO Q6H PRN pain #14 tabs 09/09/24 Rx oxycodone-acetaminophen 5 mg-325 0.5 - 1 tablet PO Q4H PRN pain #10 09/09/24 Rx mg tablet (Percocet) tabs Review of Systems Review of Systems All systems reviewed & are unremarkable except as noted in HPI and below (HPI) Exam Const: General: comfortable, no acute distress, alert and awake HENMT: Head: normocephalic and atraumatic Mouth: Yes Normal oral and palatal mucosa present Eyes: Conjunctivae: conjunctivae normal Pupils: Equal, round and reactive pupils present EOM: EOMs intact bilaterally Neck: Neck: normal visual inspection, no lymphadenopathy and nontender Resp: Effort & Inspection: normal respiratory effort Auscultation: clear to auscultation bilaterally Cardio: Rate: regular rate Rhythm: regular rhythm Heart sounds: no gallops, no murmurs and no rubs GI: Inspection: non-distended, scar (Lower abdominal midline scar) and no visible herniation GI Palp: Yes Soft to palpation, No Tenderness to palpation present (GI), No Hepatomegaly present, No Splenomegaly present and Yes Hernia present (Tender mass right groin, very tender) Skin: Lesions: no lesions Rashes: no rashes Neuro: General: no focal motor deficits and CN's II-XI intact bilaterally Cranial nerves: Yes Equal, round and reactive pupils present, Yes Bilaterally intact EOM present, Yes facial symmetry and Yes Midline tongue present Speech: normal speech Motor exam (neuro): 5/5 motor strength present throughout and Motor abnormalities not present Extrem: General: no clubbing, cyanosis or edema and edema Psych: Affect: normal affect Thought process: Normal thought process present Insight: Good insight present (Psych) DS: Summary Time Spent with Patient Time attestation: Total time spent providing and/or coordinating discharge services: DS: Admitting Diagnosis Discharge Date 09/09/2024 Admitting Diagnosis Incarcerated recurrent right inguinal hernia-plan to proceed with robotic laparoscopic repair with mesh. The procedure, risks, benefits, alternatives have been discussed with the patient. The usual length of the surgery in length of the recovery was discussed. Possibility of bilateral inguinal hernias was also discussed. If this should be found, we would go ahead and repair the hernia on the other side as well. All questions were answered. She understands and agrees to go ahead. None insulin-dependent diabetes Essential hypertension History of ovarian cancer DS: Discharge Diagnosis Discharge Diagnosis (1) Recurrent irreducible right femoral hernia: Code(s): K41.31 - Unilateral femoral hernia, with obstruction, without gangrene, recurrent Status: Chronic Assessment and Plan: Robotic laparoscopic repair with mesh performed 09/09/[address] Duarte Discharge Plan Discharge Patient Disposition: Home, Self-Care Discharge Instructions: 1. May shower the day after surgery over incisions. 2. Call office for: -Wound increasingly painful or bleeding -Vomiting -Fever of greater than 101 degrees 3. Expect some blood on dressing and old blood on skin. 4. If no bowel movement for three days, take 1 oz. (30 ml) Milk of Magnesia, if no results, take Fleets enema. 5. No heavy lifting > 15-20 pounds for 2 weeks. 6. No driving for 3 days or while taking narcotic pain medications. 7. Up walking 10-30 minutes three times per day. 8. Resume previous home medications. 9. Follow-up 10-14 days in office for wound check or as previously scheduled. 10. Oral pain medications prescription to be sent home with patient. 11. NUTRITION: Start out by drinking fluids and increase your diet as tolerated. If you experience nausea, try dry toast, crackers, and 7-UP. If nausea or vomiting persists, contact your surgeon?s office. Patient Language: Tunisian Stand Alone Forms: General Discharge Instructions Follow-up/Referrals: Benjamin Duarte MD [Physician] - 3 Weeks Discharge Medications: New oxycodone-acetaminophen [Percocet] 5-325 mg tablet 0.5 - 1 tablet PO Q4H PRN (Reason: pain) Qty: 10 0RF ibuprofen 600 mg tablet 600 mg PO Q6H PRN (Reason: pain) Qty: 14 0RF Continued glimepiride 2 mg tablet 1 mg PO DAILY losartan 100 mg tablet 100 mg PO DAILY acl-jit-owfnf-cholin-bioflavon 111-111-100 mg tablet 1 tablet PO DAILY metformin 500 mg tablet 500 mg PO BID famotidine 20 mg Tablet 20 mg PO BID
--- NOTE | 2024-09-08 14:03 | WPDANESEPPF ---
Anes - Initial Pre Proc Eval Procedure: Operation Date: 09/09/24 11:00 Proposed Procedures p Robotic Laparoscopic Incarcerated Recurrent Right Inguinal Hernia Repair with Mesh - Benjamin Duarte MD Date/Time: 09/08/24 14:03 Surgeon: Benjamin Duarte MD Pre Op Diagnosis: recurrent right incarcerated hernia Patient Data Age: 74 Gender: F Height: 1.52 m Weight: 61 kg Allergies Allergy/AdvReac Type Severity Reaction Status Date / Time No Known Allergies Allergy Verified 09/09/24 10:18 Home Medications ?Medication ?Instructions ?Recorded ?Confirmed ?Type metformin 500 mg tablet 500 mg PO BID 11/17/20 09/09/24 History famotidine 20 mg tablet 20 mg PO BID 11/21/20 09/09/24 History glimepiride 2 mg tablet 1 mg PO DAILY 08/26/24 09/09/24 History losartan 100 mg tablet 100 mg PO DAILY 08/26/24 09/09/24 History uhvbxtpc-ops-jbeayn-choline-bioflavonoids 1 tablet PO DAILY 08/26/24 09/09/24 History 111 mg-111 mg-100 mg tablet Patient hx anesthesia problems: none Family hx anesthesia problems: none Results Review: All pre-operative results and documents have been reviewed as part of the pre-operative evaluation. [facility] Past Medical History Medical History History of ovarian cancer Hard of hearing Diabetes type 2, controlled GERD (gastroesophageal reflux disease) Neuropathy Aftercare following surgery (08/10/19) Fracture of left ankle, lateral malleolus Hypertension Surgical History Surgical History Status post open reduction and internal fixation (ORIF) of fracture (08/10/19) Family History Family History Sibling Carcinoma of colon Father Malignant neoplasm of prostate Mother Family history of lung cancer Social History Social History Smoking status: Never smoker Second hand tobacco smoke exposure: No Alcohol intake: current Alcohol use details: 1 per month Substance use: never Substance use type: does not use Do You Feel Safe in your Home?: Yes Lack of Transportation: No Lack of Food: Never True Current Housing: I Have Housing Concerned About Future Housing: No Difficulty Paying Gas/Electric Bills: No Difficulty Paying for Meds: No Currently Unemployed: No Education: High School Diploma/GED Living arrangements: with family Additional living arrangements comments: Gender identity (if verbalized by the patient): Female Spiritual care concerns: No Anes - Eval Final PreProcedure Day of Procedure 09/08/24 14:03 Patient weight: overweight Heart: regular rate and rhythm Lungs: clear to auscultation Airway: Mallampati scale class III Neurological: alert and oriented Last oral intake: >/= 8 hours ASA classification: III Emergent: no Anesthetic plan: proceed Anesthesia type and monitoring: general ETT and standard monitoring Results Review: All pre-operative results and documents have been reviewed as part of the pre-operative evaluation. Informed Consent: The patient's anesthetic plan and its attendant risks and benefits were discussed with the patient/family/POA. Questions were solicited and answers provided to the satisfaction of the patient/family/POA.
[2024-09-09] VITALS (11 sets, daily range): BP systolic 114–186; BP diastolic 62–92; PULSE 67–81; RESP 11–20; TEMP 36.1–36.2; O2SAT 95–100; BMI 26.6
--- OUTSIDE RECORDS SUMMARY | 2024-09-09 00:48 | XMS_ITS | Clinical Summary ---
Author Organization [facility] Address [address] [place] [id number] Care Team Providers Care Auger Press Operator Name Role Phone Arvin Bush MD Primary Care Provider [phone] Allergies No known active allergies Medications lisinopril [...] History Relation Comments Cancer Brother Hypertension Brother HI Brother Cancer Father Cancer Mother Diabetes Mother Diabetes Sister Early Sister Heart Disease Sister Hypertension Sister HI Sister Mental Health Sister PACEMAKER Sister SISTER [...] age to complete this topic Insurance MEDICARE [place] [id number] IDAY [address] MEDICARE Advance Directives * Full Code (Latest Code Status on File) Date Activated Date Inactivated Comments 11/05/2017 6:03 PM 11/06/2017 8:03 PM Care Teams Auger Press Operator Relationship Specialty Start Date End Date Arvin Bush MD PCP - General INTERNAL MEDICINE 11/05/17
--- OUTSIDE RECORDS SUMMARY | 2024-09-09 00:48 | XMS_ITS | CONTINUITY OF CARE DOCUMENT ---
Author Name olvin bah Address Unknown Organization [facility] Address [address] [facility] [address] [place] [address] Phone [phone] Care Team Providers Care Bundle Clerk Name Role Phone Scooby VOGT, Ivania Unavailable Arvin Bush MD Unavailable [phone] Arvin Bush MD Unavailable [phone] INSURANCE PROVIDERS Payer name Policy type / Coverage type [employer] party ID [place] MED[place] Medicare [place] MEDICARE Medicare [id number] [facility] [employer] [id number]
--- OUTSIDE RECORDS SUMMARY | 2024-09-09 00:48 | XMS_ITS | Data Portability ---
Author Organization [place] [facility] [email or web address], Main Office Address [address] [place] [address] Assessment No assessment recorded. Plan of Treatment Reminders Order Date Submit Date Provider Last Modified By Organization Details Last Modified Time Details Appointments Medicare Wellness 15 2024 11:00A Junito Bush MD Not available Not available Not available Lab glycohemo globin, total, blood 2023 024 [email or web address] 2 [facility] (Lab), [address] [place], [address], 08/18/2024 16:16:05 CMP, serum or plasma 2023 024 [email or web address] 2 [facility] (Lab), [address] [place], [address], 08/18/2024 16:16:17 lipid panel, serum 2023 024 [email or web address] 2 [facility] (Lab), [address] [place], [address], 08/18/2024 16:16:29 glycohemo globin, total, blood 2023 024 [facility] (Lab), [address] [place], [address], 01/06/2024 20:53:37 CMP, serum or plasma 2023 024 [facility] (Lab), [address] [place], [address], 01/06/2024 21:41:23 microalbu min, urine 2023 024 [facility] (Lab), [address] [place], [address], 01/06/2024 20:48:58 vitamin D, 25-hydrox y, total, serum 2023 024 [facility] (Lab), [address] [place], [address], 01/10/2024 17:40:19 lipid panel, serum 2023 024 [facility] (Lab), [address] [place], [address], 01/06/2024 21:41:28 Referral physical therapist referral [address] [facility], [address] [place], [address], 03/26/2024 08:36:39 Procedures None recorded. Surgeries None recorded. Imaging MAMMO, screening , digital, bilateral 2023 024 [email or web address] [facility] ([facility]), [address] [place], [address], 07/21/2024 11:16:17 bone density [address] ([facility]uling), [address] [place], [address], 01/20/2024 08:41:15 Medication Orders amlodipin e 10 mg tablet 2023 024 [facility], [place], [address], 06/16/2024 11:38:43 glimepiri de 2 mg tablet 2023 024 [facility] [address], [place], [place], [address], 05/18/2024 10:38:20 amlodipin e 5 mg tablet 2023 [facility] [address], [place], [place], [address], 05/18/2024 10:38:21 doxycycli ne hyclate 100 mg tablet [address] [facility], [place], [place], [address], 05/18/2024 10:16:16 meloxicam 15 mg tablet [address] [facility], [address], [place], [place], [address], 05/18/2024 10:15:21 Patient TargetsNo targets recorded. Patient Instructions Encounter Date Encounter Id Patient Instructions Last Modified By Organization Details Last Modified Time 01/06/2024 [id number] dementia rating scale-2* [email or web address] Not available 01/08/2024 14:58:56 alcohol misuse* [email or web address] Not availabl e 01/08/2024 15:02:09 depression screening* [email or web address] Not available 01/08/2024 15:02:35 multi-dimensiona health assessment questionnaire* [email or web address] Not available 01/08/2024 14:36:37 advance directiv es: care instructions Not available 01/07/2024 13:29:20 advance care planning: care instructions Not available 01/07/2024 13:29:20 [place] Advance Directives Not available 01/07/2024 13:29:20 [facility]ized [facility] Plan and Screening Recommendations Advance Directives - [...] Screening: Dementia Risk: Low Depression Screening: Negative [email or web address] Not available 01/06/2024 13:55:21 05/18/2024 [id number] Personalized [facility] Plan and Screening Recommendations Advance Directives [...] urine <6.0 mg/L 0.0-16 .6 Not Available [facility] (Lab) [address] [place], [address], 01/06/2024 20:48:58 01/06/20 24 01/06/2024 HEMOG LOBIN A1C HA1C 8.7 % 4.0-6. 0 high Diabe catrina Scree saul Crite rafael: <5.7% Consi stent with absen ce of diabe catrina 5.7-6 .4% Consi stent with incre ased risk for diabe catrina (pred iabet es) >OR=6 .5% Consi stent with diabe catrina REFER ENCE: Diabe catrina Care 2016, 39(Pulido ppl.1 ):s13 -s22 Not Available [facility] (Lab) [address] [place], [address], 01/06/2024 20:53:37 01/06/20 24 01/06/2024 COMPR EHENS NATANAEL METAB OLIC PANEL sodium 137 mmol/ L 137-14 5 Not Available [facility] (Lab) [address] [place], [address], 01/06/2024 22:01:07 01/06/20 24 01/06/2024 COMPR EHENS NATANAEL METAB OLIC PANEL potassium 3.7 mmol/ L 3.5-5. 1 Not Available [facility] (Lab) [address] [place], [address], 01/06/2024 22:01:07 01/06/20 24 01/06/2024 COMPR EHENS NATANAEL METAB OLIC PANEL chloride 107 mmol/ L 98-107 Not Available [facility] (Lab) [address] [place], [address], 01/06/2024 22:01:07 01/06/20 24 01/06/2024 COMPR EHENS NATANAEL METAB OLIC PANEL carbon dioxide 25 mmol/ L 22-30 Not Available [facility] (Lab) [address] [place], [address], 01/06/2024 22:01:07 01/06/20 24 01/06/2024 COMPR EHENS NATANAEL METAB OLIC PANEL anion gap 8.7 mmol/ L 14-22 low Not Available [facility] (Lab) [address] [place], [address], 01/06/2024 22:01:07 01/06/20 24 01/06/2024 COMPR EHENS NATANAEL METAB OLIC PANEL glucose 115 mg/dL 70-99 high Not Available [facility] (Lab) [address] [place], [address], 01/06/2024 22:01:07 01/06/20 24 01/06/2024 COMPR EHENS NATANAEL METAB OLIC PANEL BUN 10 mg/dL 8-19 Not Available [facility] (Lab) [address] [place], [address], 01/06/2024 22:01:07 01/06/20 24 01/06/2024 COMPR EHENS NATANAEL METAB OLIC PANEL creatinine 0.47 mg/dL 0.66-1 .25 low Not Available [facility] (Lab) [address] [place], [address], 01/06/2024 22:01:07 01/06/20 24 01/06/2024 COMPR EHENS NATANAEL METAB OLIC PANEL GFR >60 Refer ence Range : [place] ge GFR Healt hy Adult : >60 [...] or ethni c subgr oups, such as Hisla nics. Outsi de the valid ated neetu [...] calcu lator is avail able on the [facility] websi te: https :[email or web address] w.kid [email or web address] go/yaneth ofess ional s/kdo qi/gf r_cal culat or Not Available [facility] (Lab) [address] [place], [address], 01/06/2024 22:01:07 01/06/20 24 01/06/2024 COMPR EHENS NATANAEL METAB OLIC PANEL alkaline phosphatase 74 U/L 38-126 Not Available [facility] (Lab) [address] [place], [address], 01/06/2024 22:01:07 01/06/20 24 01/06/2024 COMPR EHENS NATANAEL METAB OLIC PANEL alanine aminotransfe rase 57 U/L 0-35 high Not Available [facility] (Lab) [address] [place], [address], 01/06/2024 22:01:07 01/06/20 24 01/06/2024 COMPR EHENS NATANAEL METAB OLIC PANEL aspartate aminotransfe rase 70 U/L 15-37 high Not Available [facility] (Lab) [address] [place], [address], 01/06/2024 22:01:07 01/06/20 24 01/06/2024 COMPR EHENS NATANAEL METAB OLIC PANEL bilirubin, total 0.60 mg/dL 0.20-1 .30 Not Available [facility] (Lab) [address] [place], [address], 01/06/2024 22:01:07 01/06/20 24 01/06/2024 COMPR EHENS NATANAEL METAB OLIC PANEL calcium 9.1 mg/dL 8.4-10 .2 Not Available [facility] (Lab) [address] [place], [address], 01/06/2024 22:01:07 01/06/20 24 01/06/2024 COMPR EHENS NATANAEL METAB OLIC PANEL total protein 7.4 g/dL 6.3-8. 2 Not Available [facility] (Lab) [address] [place], [address], 01/06/2024 22:01:07 01/06/20 24 01/06/2024 COMPR EHENS NATANAEL METAB OLIC PANEL albumin 4.4 g/dL 3.0-4. 4 Not Available [facility] (Lab) [address] [place], [address], 01/06/2024 22:01:07 01/06/20 24 01/06/2024 COMPR EHENS NATANAEL METAB OLIC PANEL globulin 3.0 g/dL 2.6-4. 2 Not Available [facility] (Lab) [address] [place], [address], 01/06/2024 22:01:07 01/06/20 24 01/06/2024 COMPR EHENS NATANAEL METAB OLIC PANEL A/G ratio 1.5 ratio 1.0-2. 0 Not Available [facility] (Lab) [address] [place], [address], 01/06/2024 22:01:07 01/06/20 24 01/06/2024 LIPID PANEL cholesterol 201 mg/dL 140-19 9 high NIH FISH NSUS RECOM MENDA TION FOR ISABELLE STERO L: ADULT CHILD LOW RISK: <200 <170 BORDE RLINE : <200- 239 ----- HIGH RISK: >240 >200 Not Available [facility] (Lab) [address] [place], [address], 01/06/2024 21:41:28 01/06/2001/06/2024 LIPID PANEL triglyceride s 175 mg/dL 0-150 high NIH FISH NSUS REPOR T RECOM MENDA TION FOR TRIGL YCERI CARLOS: ADULT CHILD LOW RISK: <150 ----- BODER LINE: 150-1 99 ----- HIGH RISK: >200 ----- Not Available [facility] (Lab) [address] [place], [address], 01/06/2024 21:41:28 01/06/20 24 01/06/2024 LIPID PANEL HDL cholesterol 39 mg/dL 40- low Not Available [facility] (Lab) [address] [place], [address], 01/06/2024 21:41:28 01/06/20 24 01/06/2024 LIPID PANEL [...] WILL NOT BE REPOR DAVID. Not Available [facility] (Lab) [address] [place], [address], 01/06/2024 21:41:28 01/06/20 24 01/10/2024 VITAM IN D 25-HY DROXY [id number] 17.7 NG/mL 30-100 low Vitam in D Statu s: Defic ient: <20 ng/mL Insuf ficie nt: 20-29 ng/mL Suffi cient : 30-10 0 ng/mL Not Available [facility] (Lab) [address] [place], [address], 01/10/2024 17:32:42 07/13/20 24 07/13/2024 CULTU RE URINE urc ===== ===== ===== ===== ===== ===== ===== ===== ===== ===== ===== ===== ===== ===== ===== ===== ===== ===== ===== ===== ===== ===== ===== ===== Speci men NO.: [id number] Exam Statu s: Final Proce dure: [...] Genta micin <=2 [place] [id number] Oxida se React ion N Extra Sensi [...] furan toin <=32 S S Not Available [facility] (Lab) [address] [place], [address], 07/15/2024 08:51:46 07/13/20 24 07/13/2024 urina lysis , dipst ick Leukocytes (reference range: negative rl/ l) Large Not Available [facility] [address] [place], [address], 07/13/2024 15:52:56 07/13/20 24 07/13/2024 urina lysis , dipst ick Nitrite (reference rage: negative mg/dl) positi ve Not Available [facility] [address] [place], [address], 07/13/2024 15:52:56 07/13/20 24 07/13/2024 urina lysis , dipst ick Urobilinogen (reference range: 0.2-1 mg/dl) 0.2 Not Available [facility] [address] [place], [address], 07/13/2024 15:52:56 07/13/20 24 07/13/2024 urina lysis , dipst ick Protein (reference range: negative mg/dl) Trace Not Available [facility] [address] [place], [address], 07/13/2024 15:52:56 07/13/20 24 07/13/2024 urina lysis , dipst ick pH (reference range: 5-7) 6.0 Not Available [facility] [address] [place], [address], 07/13/2024 15:52:56 07/13/20 24 07/13/2024 urina lysis , dipst ick Blood (reference range: negative Hank/ l) Large Not Available [facility] [address] [place], [address], 07/13/2024 15:52:56 07/13/20 24 07/13/2024 urina lysis , dipst ick Specific [place] (reference range: 1.005-1.030) 1.025 Not Available [facility] [address] [place], [address], 07/13/2024 15:52:56 07/13/20 24 07/13/2024 urina lysis , dipst ick Ketone (reference range: negative mg/dl) Negati ve Not Available [facility] [address] [place], [address], 07/13/2024 15:52:56 07/13/20 24 07/13/2024 urina lysis , dipst ick Bilirubin (reference range: negative mg/dl) Modera te Not Available [place] [address] [place], [address], 07/13/2024 15:52:56 07/13/20 24 07/13/2024 urina lysis , dipst ick Glucose (reference range: negative mg/dl) Negati ve Not Available [facility] [address] [place], [address], 07/13/2024 15:52:56 07/13/20 24 07/13/2024 urina lysis , dipst ick Appearance Turbid Not Available [facility] [address] [place], [address], 07/13/2024 15:52:56 07/13/20 24 07/13/2024 urina lysis , dipst ick Color Yellow Not Available [place] [address] [place], [address], 07/13/2024 15:52:56 12/31/19 24 12/31/2023 XR, knee, 3 view [facility] [address] [place] [address] [phone] Patien t Name: JAIME HAIRSTON TE Access ion #: [id number] Sex: F : 1949 1 Dictat [...] 2023 10:20: 26 AM Page 1 [email or web address] [facility] (Imaging) [address] [place], [address], 01/02/2024 10:59:22 03/03/20 24 03/03/2024 DEXA, axial skele ton [facility] [address] [place] [address] Patien t Name: JAIME HAIRSTON TE Access ion #: [id number] Sex: F : 1949 1 Dictat [...] osteop enia -2.5: osteop orosis Page 1 [facility] [address] [place] [address] Patilance t Name: JAIME HAIRSTON Access ion #: [id number] Sex: F : 1949 1 Dictat ed By: Anika Mcgill Attend ing Physic zahida[facility] Physic zahida: SONIA BUSH Exam Date: 2023 [...] 2023 08:33: 13 AM Page 2 [email or web address] [facility] (Imaging) [address] [place], [address], 03/11/2024 10:22:30 03/03/20 24 03/03/2024 scree saul breas t shelley, bilat [facility] [address] [facility] [address], [place] [address] Patien t Name: JAIME HAIRSTON Access ion #: [id number] Sex: F : 1949 1 Dictat [...] 2023 08:44: 12 AM Page 1 [email or web address] [facility] ([facility]) [address], [place], [address], 03/11/2024 10:58:38 07/10/20 24 07/09/2024 XR, knee, 4 or more view No observ ation record ed. [email or web address] Not Available 2023 15:12:58 Result Notes None recorded. Problems Name Problem SNOMED Code Status Onset Date Resolution Date Notes Provider Name and Address Organization Details Recorded Time Acute bronchiti s 59484101 Completed Not Available [facility] 3 14:14:52 Impacted cerumen of bilateral ears 01534526444 94490 Completed 202103/06/2022 Not Available [facility] 3 14:14:52 Impacted cerumen in right ear 38187529465 67869 Completed 202103/06/2022 Not Available [facility] 3 14:14:52 Benign essential hypertens ion 8221064 Active Not Available [facility] 3 14:14:52 Hearing loss 09723413 Active 2021 Not Available [facility] 3 14:14:52 Acute sinusitis 48651766 Completed Not Available [facility] 3 14:14:52 Otalgia 92970420 Completed Not Available [facility] 3 14:14:52 Mammograp hy abnormal 846077074 Active 2021 Not Available [facility] 3 14:14:52 Impacted cerumen 93631109 Completed Not Available [facility] 3 14:14:52 Steatosis of liver 781953874 Active Not Available [facility] 3 14:14:52 Abdominal pain 68144640 Completed Arvin Bush MD [address], [place], [address] , [place] [facility] [employer] [employer] [facility] 3 16:43:15 Gastroeso phageal reflux disease 565216985 Active Not Available [facility] 3 14:14:52 Right inguinal hernia 708488205 Completed 202203/25/2023 SILVESTRE Maceil null, [facility] 3 10:23:10 Dysfuncti onal voiding 308653470 Active 2021 Not Available [facility] 3 14:14:53 Headache 14167778 Completed Not Available [facility] 3 14:14:53 Gastroent eritis 92841987 Completed Not Available [facility] 3 14:14:53 Pure hyperchol esterolem ia 002776256 Active Not Available [facility] 3 14:14:53 Chest pain 63514459 Active 2021 Not Available [facility] 3 14:14:53 Osteopeni a 590530785 Completed 201604/28/2018 Not Available [facility] 3 14:14:53 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 1993 Not Available [facility] 3 14:14:53 Sinusitis 70997563 Completed Not Available [facility] 3 14:14:53 Neuropath y 962154876 Active 2017 Not Available [facility] 3 14:14:53 Acute urinary tract infection 007394990 Completed 202107/04/2022 RENETTA Mata, [facility] 3 14:20:01 Acute urinary tract infection 358583785 Completed 202103/06/2022 RENETTA Mata, [facility] 3 14:20:01 Trigger finger Completed Not Available [facility] 3 14:14:54 Herpes zoster 0397138 Active Not Available [facility] 3 14:14:54 Foot pain 56898623 Completed Not Available [facility] 3 14:14:54 Cough 51807380 Completed 202103/06/2022 Not Available [facility] 3 14:14:54 Upper respirato ry infection 26482034 Completed Arvin Bush MD [address], [place], [address] , [facility] [employer] [facility] 4 10:59:40 Lower abdominal pain 48594971 Completed Not Available [facility] 3 14:14:54 Hyperlipi demia 00696002 Active Not Available [facility] 3 14:14:54 Carpal tunnel syndrome 45477531 Active 2017 Not Available [facility] 3 14:14:54 Essential hypertens ion 46711248 Active 2021 Not Available [facility] 3 14:14:54 Osteoporo sis 03082769 Active 2021 Not Available [facility] 3 14:14:54 Type B viral hepatitis 72479793 Active Not Available [facility] 3 14:14:55 Acute laryngiti s 7120975 Completed 202103/06/2022 Not Available [facility] 3 14:14:55 Urinary tract infectiou s disease 01254120 Completed Not Available [facility] 3 14:14:55 Diabetes mellitus 21121410 Active 2020 Not Available [facility] 3 14:14:55 Abnormal liver function 80755591 Completed Not Available [facility] 3 14:14:55 Fatigue 83094859 Completed 202105/01/2022 Not Available [facility] 3 14:14:55 Fatigue 02793449 Completed Not Available [facility] 3 14:14:55 Heart murmur 08692777 Active 2022 Arvin Bush MD [address], [facility] [address], [place], [address] , [facility] [place] [employer] [facility] 3 11:08:32 Right inguinal pain 96010254676 779621 Completed 202203/25/2023 Karmen Stufflebea n, RMA null, [place] [facility] 3 10:23:09 Inguinal pain 290110124 Active 2022 Arvin Bush MD [address], [place], [address] , [place] [facility] 3 10:48:17 Abdominal pain 71851566 Active 2022 Arvin Bush MD [address], [place], [address] , [place] [facility] 3 16:43:15 Anemia 207424947 Active 2022 Arvin Bush MD [address], [place], [address] , [place] [facility] 3 08:31:56 Urinary symptoms 257180036 Active 2022 SILVESTRE Maciel null, [place] [facility] 3 16:11:13 Recurrent urinary tract infection 930008058 Active 2022 Doris Bermudez LPN null, [place] [facility] 3 17:10:06 Acute urinary tract infection 656221074 Active 2022 Doris Bermudez LPN null, [place] [facility] 3 14:20:01 Abdominal wall pain 736570330 Active 2023 Franklin messer MD [address], [place], [address] , [place] [facility] 4 14:19:43 Pain in left arm 353402963 Active 2023 SILVESTRE Maciel null, [place] [facility] 4 13:48:21 Pain of left knee joint 66358457604 4107 Active 2023 Arvin Bush MD [address], [place], [address] , [place] [facility] 4 10:16:44 Type 2 diabetes mellitus without complicat ion 005213950 Active 2023 Doris Bermudez LPN null, [facility] 4 10:10:59 Vitamin D deficienc y 26770843 Active 2023 Doris Bermudez LPN null, [place] [facility] 4 14:22:44 Upper respirato ry infection 30555065 Active 2023 Arvin Bush MD [address], [facility] [address], [place], [address] , [facility] 4 10:59:40 Pain of left shoulder joint 66944792331 848306 Active 2023 Arvin Bush MD [address], [facility] [address], [place], [address] , [facility] 4 11:00:39 Infected insect bite 982540366 Active 2023 Arvin Bush MD [address], [facility] [address], [place], [address] , [facility] 4 16:18:42 Pain of right knee joint 03866235042 4100 Active 2023 Alba Lagos MA null, [facility] 4 11:44:44 Knee pain Active 2023 Alba Lagos MA null, [facility] 4 15:01:00 Problem Notes None recorded. Procedures Surgical History Date Name Laterality Status Provider Name and Address Organization Details Recorded Time 4 Medicare Wellness CPT Code, subsequent completed SILVESTRE Jensen [facility] 05/18/2024 10:01:03 4 Advanced Care Planning completed Karmen Hernandez Celena [facility] 05/18/2024 10:01:03 4 Medicare Wellness CPT Code, subsequent completed Jovana Sheppard RN [facility] 01/06/2024 13:43:26 4 Advanced Care Planning completed KAYLIN Black [facility] [email or web address] 01/06/2024 13:47:57 3 Hernia Surgery completed Jo Ann Bosch MA [facility] [email or web address] 10/23/2022 13:07:19 2 Most Recent Bone Density completed Not Available [facility] 09/12/2022 14:12:08 Imaging Results Imaging Date Name Status LastModified by Organiz ation Details LastModified Time 12/31/2023 XR, knee, 3 view completed [email or web address] [facility] (Imaging) [address] [place], [address], 01/02/2024 10:59:22 03/03/2024 DEXA, axial skeleton completed [email or web address] [facility] (Imaging) [address] [place], [address], 03/11/2024 10:22:30 03/03/2024 screening breast shelley, bilat completed [email or web address] [facility] (Imaging) [address] [place], [address], 03/11/2024 10:58:38 07/09/2024 XR, knee, 4 or more view completed [email or web address] Information not available 07/10/2024 15:12:58 Procedure Notes None recorded. Medical Equipment None Reported. Allergies Allergen ID Allergen Name Allergen Category Reaction Reaction Severity Criticality Documentation Date Start Date Code Code System Note Provider Name and Address Organization Details Recorded Time 50066 lisinopri l medicatio n cough Not available Not available 09/12/2022 48622 RxNorm Not Available [facility] 14:17:52 Medications Name Sig Start Date Stop [...] Updated DateTime 4 152.4 cm 26.3 kg/m2 91968.6 1 g 69 /min 99 % 99 % 124 mm[Hg] 78 mm[Hg] Raegan Marquez Celena [facility] [employer] [place] [employer] [facility] 4 12:13:34 Date Recorded Pain severity - 0-10 verbal numeric rating [Score] - Reported Provider Name and Address Organization Details Last Updated DateTime 01/06/2024 0 Jovana Sheppard RN [facility] [employer] [employer] [facility] 01/06/2024 13:43:49 Date Recorded Body height Body mass index (BMI) Body weight Body temperature Heart rate Oxygen saturation Oxygen saturation in Arterial blood by Pulse oximetry Systolic blood pressure Diastolic blood pressure Provider Name and Address Organization Details Last Updated DateTime 4 152.4 cm 26.2 kg/m2 28283.3 8 g 98.4 [degF] 68 /min 99 % 99 % 122 mm[Hg] 76 mm[Hg] Cassia Bowles [facility] [place] [facility] 4 10:14:10 Date Recorded Body height Body mass index (BMI) Body weight Body temperature Heart rate Oxygen saturation Oxygen saturation in Arterial blood by Pulse oximetry Systolic blood pressure Diastolic blood pressure Provider Name and Address Organization Details Last Updated DateTime 4 152.4 cm 26.8 kg/m2 39447.1 5 g 97.7 [degF] 83 /min 97 % 97 % 124 mm[Hg] 80 mm[Hg] Karmen maxwell [facility] [place] [facility] 4 16:01:38 Date Recorded Body height Body mass index (BMI) Body weight Body temperature Heart rate Oxygen saturation Oxygen saturation in Arterial blood by Pulse oximetry Systolic blood pressure Diastolic blood pressure Provider Name and Address Organization Details Last Updated DateTime 4 152.4 cm 26.4 kg/m2 22385.9 7 g 97.5 [degF] 82 /min 98 % 98 % 162 mm[Hg] 80 mm[Hg] Karmen maxwell Celena [facility] [place] [facility] 4 10:07:23 Date Recorded Body height Body mass index (BMI) Body weight Body temperature Oxygen saturation Oxygen saturation in Arterial blood by Pulse oximetry Heart rate Systolic blood pressure Diastolic blood pressure Provider Name and Address Organization Details Last Updated DateTime 4 152.4 cm 27.1 kg/m2 94736.3 4 g 96.7 [degF] 98 % 98 % 85 /min 156 mm[Hg] 78 mm[Hg] Jocelin RENNER - [facility] 4 11:10:18 Social History Question Answer Notes LastModified by Organization Details LastModified Time Tobacco Smoking Status Never Smoker Not Available [employer] 09/12/2022 14:11:44 Do You Have An Advance Directive? No Papers Given MIGRATION.030 [id number] Information not available 09/12/2022 What Is Your Level Of Alcohol Consumption? Occasional MIGRATION.030 528258 Information not available 09/12/2022 Are You Blind Or Do You Have Difficulty Seeing? No MIGRATION.030 705095 Information not available 09/12/2022 What Is Your Level Of Caffeine Consumption? Occasional MIGRATION.030 028896 Information not available 09/12/2022 In The 14 Days Before Symptom Onset, Have You Had Close Contact With A Laboratory-confi rmed COVID-19 While That Case Was Ill? No MIGRATION.030 278821 Information not available 09/12/2022 In The 14 Days Before Symptom Onset, Have You Had Close Contact With A Person Who Is Under Investigation For COVID-19 While That Person Was Ill? No MIGRATION.030 752544 Information not available 09/12/2022 Are You Currently Employed? Yes [email or web address] Information not available 01/06/2024 Are You Deaf Or Do You Have Serious Difficulty Hearing? Yes [employer] In Left Ear, Hearing Aid MIGRATION.030 756709 Information not available 09/12/2022 What Type Of Diet Are You Following? 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 7 MIGRATION.030 879390 Information not available 09/12/2022 Have There Been Any Changes To Your Family Or Social Situation? No [email or web address] Information not available 01/06/2024 What Is The Fluoride Status Of Your Home? Fluoridated MIGRATION.030 626573 Information not available 09/12/2022 Do You Use Insect Repellent Routinely? No MIGRATION.0301 625575 Information not available 09/12/2022 Where Do You Live? Located within [facility] MIGRATION.0301 660345 Information not available 09/12/2022 Presence Of Domestic Violence No [email or web address] Information not available 01/06/2024 Are You Able To Care For Yourself? Yes [email or web address] Information not available 01/06/2024 Are You Blind Or Do Yo Have Difficulty Seeing? No [email or web address] Information not available 01/06/2024 Are You Deaf Or Do You Have Serious Difficulty Hearing? No [email or web address] Information not available 01/06/2024 General Stress Level? Moderate [email or web address] Information not available 01/06/2024 Live Alone Of With Others? With Others [email or web address] Information not available 01/06/2024 Do You Have A Medical Power Of Director Of Community Center? No [email or web address] Information not available 01/06/2024 What Was The Date Of Your Most Recent Tobacco Screening? 01/06/2024 [email or web address] Information not available 01/06/2024 Have You Ever Been Counseled For Unhealthy Alcohol Use? No MIGRATION.0301 [id number] Information not available 09/12/2022 Do You Have Any Pets? Yes [email or web address] Information not available 01/06/2024 What Is Your Relationship Status? MIGRATION.0301 387315 Information not available 09/12/2022 Do You Use Your Seat Belt Or Car Seat Routinely? Yes MIGRATION.0301 [id number] Information not available 09/12/2022 Do You Have Smoke And Carbon Monoxide Detectors In Your Home? Yes MIGRATION.0301 728347 Information not available 09/12/2022 Are You Passively Exposed To Smoke? No [email or web address] Information not available 01/06/2024 Are There Any Smokers In Your House? No [email or web address] Information not available 01/06/2024 What Types Of Sporting Activities Do You Participate In? None [email or web address] Information not available 01/06/2024 Do You Feel Stressed (tense, Restless, Nervous, Or Anxious, Or Unable To Sleep At Night)? [id number] [email or web address] Information not available 01/06/2024 Do You Use Any Illicit Or Recreational Drugs? No MIGRATION.0301 343892 Information not available 09/12/2022 Do You Use Sunscreen Routinely? No MIGRATION.0301 390846 Information not available 09/12/2022 Have You Recently Traveled Abroad? No MIGRATION.0301 465784 Information not available 09/12/2022 Do You Have Any Dietary Restrictions? No MIGRATION.0301 089672 Information not available 09/12/2022 Do You Or Have You Ever Used Any Other Forms Of Tobacco Or Nicotine? No [email or web address] Information not available 01/06/2024 How Many Days In The Past Year Have You Consumed 4 Or More Drinks? 0 [email or web address] Information not available 01/06/2024 Sex: Unknown Functional Status Question Answer Note LastModified by [employer] Details LastModified Time Do you have difficulty walking or climbing stairs? No MIGRATION.[id number] 026 Information not available 09/12/2022 Do you have transportation difficulties? No MIGRATION.1724894 026 Information not available 09/12/2022 Are you able to walk? YESWOREST MIGRATION.1800068 026 Information not available 09/12/2022 Do you have difficulty doing errands alone? No MIGRATION.7696336 026 Information not available 09/12/2022 Are you able to care for yourself? Yes MIGRATION.7789194 026 Information not available 09/12/2022 Do you have difficulty dressing or bathing? No MIGRATION.2764596 026 Information not available 09/12/2022 What is your exercise level? Moderate MIGRATION.2834902 026 Information not available 09/12/2022 Mental Status Question Answer Note LastModified by [employer] Details LastModified Time Do you have difficulty concentrating, remembering or making decisions? No MIGRATION.[id number] 6 Information not available 09/12/2022 Family History Relationship Description Onset Age of this Age Resolved Age Notes LastModified by Organization Details LastModified Time Father No current problems or disability MIGRATION.189 [id number] Not available 09/12/2022 14:12:09 Mother No current problems or disability MIGRATION.673 [id number] Not available 09/12/2022 14:12:09 Medical History Condition [...] Time TST-PPD intradermal 3 completed Not Available [facility] 09/12/2022 14:17:45 Influenza, high-dose, trivalent, PF 2 completed Not Available [facility] 09/12/2022 14:17:45 DTaP 1 completed Not Available [facility] 09/12/2022 14:17:45 SARS-COV-2 (COVID-19) vaccine, UNSPECIFIED 1 completed Not Available [facility] 09/12/2022 14:17:45 Influenza, high-dose, trivalent, PF 7 completed Not Available [facility] 09/12/2022 14:17:45 Influenza, high-dose, quadrivalent, PF 2 completed Not Available [facility] 09/12/2022 14:17:45 pneumococcal polysaccharide PPV23 2 completed Not Available [facility] 09/12/2022 14:17:46 Pneumococcal conjugate PCV 13 1 completed Not Available [facility] 09/12/2022 14:17:46 Influenza, high-dose, quadrivalent, PF 0 completed Not Available [facility] 09/12/2022 14:17:46 Influenza, high-dose, trivalent, PF 8 completed Not Available [facility] 09/12/2022 14:17:46 Influenza, high-dose, trivalent, PF 7 completed Not Available [facility] 09/12/2022 14:17:46 Influenza, high-dose, trivalent, PF 5 completed Not Available [facility] 09/12/2022 14:17:46 Influenza, split virus, trivalent, PF 4 completed Not Available [facility] 09/12/2022 14:17:46 Influenza, high-dose, trivalent, PF 4 completed SILVESTRE [place], [place] - [facility] [place] [facility] 05/18/2024 13:23:54 Past Encounters Encounter ID Performer Location Encounter Start Date Encounter Closed Date Diagnosis/Indication Diagnosis SNOMED-CT Code Diagnosis ICD10 Code Diagnosis Note [id number] [facility] [address] [facility] [place] [address] 04/19/2021 00:00:00 04/19/2021 17:26:39 [id number] [facility] [address] [place] [address] 08/18/2021 00:00:00 08/18/2021 09:44:54 [id number] _ATHENA_M IGRATION_ DEFAULT_1 _1 , 08/30/2021 00:00:00 08/30/2021 16:23:59 [id number] [facility] Internal Med [address] [place] [address] 10/31/2021 00:00:00 10/31/2021 16:46:53 [id number] [facility] Internal Med [address] [place] [address] 12/13/2021 00:00:00 12/13/2021 10:36:55 [id number] [facility] Med [address] [place] [address] 03/08/2022 00:00:00 03/08/2022 11:02:29 [id number] [facility] Internal Med [address] [place] [address] 04/02/2022 00:00:00 04/02/2022 10:47:19 [id number] [facility] Urology [address], [address] [place] [address] 06/21/2022 00:00:00 06/21/2022 09:55:53 [id number] [facility] Internal Med [address] [place] [address] 07/04/2022 00:00:00 07/04/2022 11:21:31 [id number] [facility] General Surgery [address] [place], [place] [address]., [address] [place] [address] 09/06/2022 00:00:00 09/06/2022 13:54:51 [id number] Franklin messer MD [facility] General Surgery [address] [address] 10/23/2022 12:16:05 10/23/2022 13:36:41 [id number] Arvin Bush MD [facility] Internal Med [address] [facility] [place] [address] 11/14/2022 10:30:48 11/14/2022 11:19:03 Diabetes mellitus 83407611 E11.9 labs Hyperlipidemia 93520962 E78.5 under control, Osteoporosis 88858616 M8 1.0 was on meds has improved Benign ess ential hypertension 0099105 I10 under control Gastroesop hageal reflux disease 139763289 K21.9 better with meds Adult heal th examination 886655454 Z00.00 COLONOSCOP Y- 2011 Mammo- 10/2021- ordered Dexa- 02/2022 Flu- 07/04/2022 COVID- all three P13- PV23- 10/31/21 Screening mammography 24 470645 Z12.31 Heart murmur 17468437 R0 1.1 [id number] Franklin messer MD [facility] General Surgery [address] [address] 01/22/2023 10:32:31 01/22/2023 14:05:57 Right inguinal pain 9621232085 9787426 R10.31 [id number] Arvin Bush MD [facility] Internal Med [address] [facility] [place] [address] 03/25/2023 10:15:45 03/25/2023 10:51:23 Diabetes mellitus 63772817 E11.9 advised to watch diet, labs next time Hyperlipidemia 68105045 E78.5 under control, Osteoporosis 79712962 M8 1.0 was on meds has improved Benign ess ential hypertension 3972661 I10 watch Gastroesop hageal reflux disease 490576697 K21.9 better with meds Adult heal th examination 367882943 Z00.00 COLONOSCOP Y- 2011, orderMammo - 3Dex a- 02/2022Flu - 07/04/2022 COVID- all [id number] 09/05/20PV2 3- 10/31/21 Heart murmur 63784978 R0 1.1 US-echo 12/26/22 Screening for malignant neoplasm of colon 662817734 Z12.11 Inguinal pain 229186746 R10.2 likely from the previous surgery [id number] Karmen pichardo A [facility] Internal Med [address] [facility] [place] [address] 05/13/2023 16:03:31 05/13/2023 16:47:35 Abdominal pain 86098696 R10.9 [id number] Franklin messer MD [facility] General Surgery [address] [place] [address] 07/18/2023 10:56:47 07/18/2023 15:44:04 Abdominal wall pain 234774179 R10.9 [id number] Arvin Bush MD [facility] Internal Med [address] [facility] [place] [address] 08/06/2023 10:16:11 08/06/2023 10:54:09 Diabetes mellitus 21134779 E11.9 advised to watch diet, labs Hyperlipidemia 44124032 E78.5 under control, Osteoporosis 33792584 M8 1.0 was on meds has improved Benign ess ential hypertension 4779772 I10 increasing Losartan to 100mg Heart murmur 23485940 R0 1.1 US-echo 12/26/22 Gastroesop hageal reflux disease 856039666 K21.9 better with meds Adult heal th examination 109647956 Z00.00 COLONOSCOP Y- 2011, ORDEREDMam mo- 3Dex a- 02/2022Flu - 07/04/2022 COVID- all [id number] 09/05/20PV2 3- 10/31/21 Screening for malignant neoplasm of colon 557966047 Z12.11 Inguinal pain 405132243 R10.2 from the previous surgery [id number] Arvin Bush MD [facility] Internal Med [address] [facility] [place] [address] 12/16/2023 09:55:04 12/16/2023 10:22:21 Pain of left knee joint 2186835222 06080 M25.562 voltaren gel [id number] Arvin Bush MD [facility] Internal Med [address] [facility] [place] [address] 01/06/2024 12:09:42 01/06/2024 13:09:49 Diabetes mellitus 89469470 E11.9 advised to watch diet, labs Hyperlipidemia 97296914 E78.5 under control, Osteoporosis 79977186 M8 1.0 was on meds has improved Benign ess ential hypertension 8414018 I10 better Heart murmur 23716886 R0 1.1 US-echo 12/26/22 Gastroesop hageal reflux disease 104702504 K21.9 better with meds Adult heal th examination 820547788 Z00.00 COLONOSCOP Y- 2011, ORDEREDMam mo- 3Dex a- 02/2022Flu - 07/04/2022 COVID- all [id number] 09/05/20PV2 3- 10/31/21 Inguinal pain 086142019 R10.2 from the previous surgery Screening mammography 24 623741 Z12.31 Long-term drug therapy 783230898 Z79.899 Postmenopausal state 764 [address] Z78.0 Screening for disorder 205300186 Z13.9 [id number] Arvin Bush MD [facility] Internal Med [facility] [address] [facility] [place] [address] 03/12/2024 09:50:55 03/12/2024 11:04:16 Upper respiratory infection 98458990 J06.9 getting better, otc discussed Abdominal pain 37322312 R10.9 all the w/u neg, could be due to constipati on, take senokot 2 tabs a dayto see gyne Pain of le ft shoulder joint 4008680264 1489751 M25.512 tendonitis [id number] Arvin Bush MD [facility] Internal Med [facility] [address] [facility] [place] [address] 04/07/2024 15:53:40 04/07/2024 16:21:05 Infected insect bite 513563842 L08.9 [id number] Arvin Bush MD [facility] Internal Med [address] [facility] [place] [address] 05/18/2024 09:52:38 05/18/2024 10:42:36 Diabetes mellitus 94904476 E11.9 keep watching diet. labs Hyperlipidemia 48332637 E78.5 under control, Osteoporosis 12439921 M8 1.0 was on meds has improved Benign ess ential hypertension 5216671 I10 add amlodipine Heart murmur 62883418 R0 1.1 US-echo 12/26/22 Gastroesop hageal reflux disease 745000659 K21.9 better with meds Adult heal th examination 994142284 Z00.00 COLONOSCOP Y- 2023- Not in chartMammo - 03/03/2024 Dexa- 03/03/2024 Flu- 05/18/2024 COVID- all [id number] 09/05/20PV2 3- 10/31/21 Inguinal pain 481288996 R10.2 has another hernia and needs surgery Administra tion of influenza vaccine 39427939 Z23 [id number] Arvin Bush MD [facility] Internal Med [address] [facility] [place] [address] 06/16/2024 10:55:37 06/16/2024 11:41:16 Benign essential hypertension 0722396 I10 ^ amlodipine dosewatch sodium intake Health Concerns Section Related Observation LastModified by Organization Detai ls LastModified Time None Recorded Concern Status LastModified by Organization Details LastModified Time None Recorded Advance Directives Directive N: papers given Payers Encounter Date Sequence Insurance Name Policy Number Policy Clemente Covered Member ID Clemente Member ID Guarantor Name 01/06/2024 1 MEDICARE B: [facility] MEDIC[facility] Ary Hairston [id number] Ary Hairston 01/06/2024 2 [employer] OPTIONS (MEDICARE SUPPLEMENT) Ary Hairston [id number] Ary Hairston 03/12/2024 1 MEDICARE B: [employer] MEDICARE Ary Wild Marika [id number] Ary Wild Marika 03/12/2024 2 [employer] OPTIONS (MEDICARE SUPPLEMENT) Ary Wild Marika [id number] Ary Wild Marika 04/07/2024 1 MEDICARE B: [employer] MEDICARE Ary M Marika [id number] Ary M Marika 04/07/2024 2 [employer] OPTIONS (MEDICARE SUPPLEMENT) Ary M Marika [id number] Ary M Marika 05/18/2024 1 MEDICARE B: [employer] MEDICARE Ary M Marika [id number] Ary M Marika 05/18/2024 2 [employer] OPTIONS (MEDICARE SUPPLEMENT) Ary M Marika [id number] Ary Hairston 06/16/2024 1 MEDICARE B: [employer] MEDICARE Ary M Marika [id number] Ary Junito Marika 06/16/2024 2 [employer] OPTIONS (MEDICARE SUPPLEMENT) Ary Hairston [id number] Ary Hairston Notes Date Note Type Note Provider Name and Address Organization Details Recorded Time 01/06/2024 text/html Here for routine f/u. compliant to medications, no side affects,PT IS FASTING Colonoscopy is scheduled for Saturday HTN- BP today is 124/78Meds- Losartan 50mg dailyHyperlipidemia- controlling diet and under control, labs dueMeds- noneDM- diagnosed in 03/03, controlling diet, accu checks 137Has not lost or [id number] was 7.5 (08/20/23)No Hypoglycemia ,DM eye exam- [...] Bush MD [address], [address], [place], [address], [employer] 01/07/2024 13:29:26 03/12/2024 text/html Pt is here [...] Bush MD [address], [address], [place], [address], [employer] 03/12/2024 11:02:41 04/07/2024 text/html She is here [...] Bush MD [address], [address], [place], [address], [employer] 04/07/2024 16:19:38 05/18/2024 text/html Here for routine f/u. compliant to medications, no side affects,PT IS FASTING ( Medicare / [facility] ) Blood pressure has been running [...] surgery 11/04, recovering Arvin Bush MD [address], [address], [place], [address], [employer] 05/18/2024 10:39:40 06/16/2024 text/html Pt is here today for a 1 month follow up on her blood pressureLast visit it was 162/80 and Amlodipine 5mg was added. Today it is 156/78no side effectsAlso C/o RT hernia, pt has surgery 08/2024 Arvin Bush MD [address], [address], [place], [address], [employer] 06/16/2024 11:40:08 OBGyn Episode No OBEpisode recorded.
--- OUTSIDE RECORDS SUMMARY | 2024-09-09 00:48 | XMS_ITS | Data Portability ---
Author Organization [facility] Address [address] [place] [address] Care Team Providers Care Office Machine Servicer Apprentice Name Role Phone DEBBIE ALFONSO Primary Care Provider Assessment Encounter Date Assessment Date Assessment LastModified [...] None recorded. Imaging US, pelvis 2023 [address] [address] [address], [address], [place], [address], 12:10:28 US, transvagina l 2023 024 [place] [address] [address], [place], [address], 12:10:28 MAMMO, screening, bilateral 2022 023 [facility], [address], [place] [address], [place], [address], 3 09:12:56 CT, abdomen + pelvis, w/ contrast - looking for causes of pelvic or abdominal pain; reports hysterectom y want to ensure no stamp pad maker parts left 2022 023 [facility], [address], [place], [address], 12:20:54 Medication Orders Imvexxy Maintenance Pack 10 mcg vaginal insert 2022 023 [address] [facility], [address], [address], 10:48:43 Patient TargetsNo targets recorded. Patient InstructionsNo instructions recorded. Reason for Referral None Reported. Results Created Date Observation Date Name Description Value Unit Range Abnormal Flag Note LastModifiedBy Organization Detail LastModifiedTime 07/23/1907/23/2022 CT/GC AND TRICH OMONA S VAGIN LISA (RRNA ), SWAB chlamydia trachomatis, PCR NEGATI VE negati ve Not Available [facility] (Lab) [address], [place], [address], 07/24/2022 13:07:29 07/23/19 23 07/23/2022 CT/GC AND TRICH OMONA S VAGIN LISA (RRNA ), SWAB neisseria gonorrhoeae, PCR NEGATI VE negati ve Not Available [facility] (Lab) [address], [place], [address], 07/24/2022 13:07:29 07/23/19 23 07/23/2022 CT/GC AND TRICH OMONA S VAGIN LISA (RRNA ), SWAB trichomonas vaginalis ribosomal RNA (rrna) NEGATI VE negati ve Not Available [facility] (Lab) [address], [place], [address], 07/24/2022 13:07:29 08/20/19 23 08/08/2022 CT, abdom en + pelvi s, w/ contr ast No observ ation record ed. [email or web address], [place], [address], 11/19/2022 10:44:02 10/03/20 24 04/16/2024 US, pelvi s No observ ation record ed. [email or web address], [place], [address], 04/16/2024 12:56:05 04/16/20 24 04/16/2024 US, trans vagin al No observ ation record ed. [email or web address] [place] [address], [place], [address], 04/16/2024 12:56:18 04/16/20 24 04/16/2024 US, pelvi s No observ ation record ed. [email or web address], [place], [address], 04/16/2024 21:50:32 05/04/20 24 05/04/2024 CT, abdom en + pelvi s, w/wo contr ast No observ ation record ed. [facility] [address], [place], [address], 05/08/2024 10:18:42 Result Notes None recorded. Problems Name Problem SNOMED Code Status Onset Date Resolution Date Notes Provider Name and Address Organization Details Recorded Time SNOMED CT Concept Active 2016 Encntr for general adult medical exam w/o abnormal findings;P ashishtice ID: [id number] Not Available [facility] 0 16:45:56 Screening for malignant neoplasm of rectum Active 2016 Encounter for screening for malignant neoplasm of rectum;Rec orded Elsewhere: No Locatio n: [facility]arly[facility] rce: EHR Chroni c: N Practice ID: [id number] Billa ble Time: 08:15:00 AM Not Available [facility] [address] 16:45:[address] Concept Active 2016 Well woman check w/o abnormal finding;Re corded Elsewhere: No Locatio n: [facility] rce: EHR Chroni c: N Practice ID: [id number] Billa ble Time: 08:15:00 AM Not Available [facility] 0 16:45:56 Screening for malignant neoplasm of cervix Active 2016 Encounter for screening for malignant neoplasm of cervix;Rec orded Elsewhere: No Locatio n: [facility] rce: EHR Chroni c: N Practice ID: [id number] Karthikeyan gregg Time: 08:15:00 AM Not Available [facility] 0 16:45:56 Problem Notes None recorded. Procedures Surgical History Date Name Laterality Status Provider Name and Address Organization Details Recorded Time 10/14/19 23 hernia repair completed Annie Martinez [facility] 11/19/2022 09:57:27 03/26/20 17 Date of Last Pap Smear completed Kathleen Espino [facility] 07/23/2022 09:24:11 07/15/18 95 hysterectomy completed Nithya Chan [facility]- [address], [place], [address], [facility] 07/23/2022 12:35:43 07/17/18 94 Removal of ovary(s) completed Nithya Chan JESSICA- [address], [place], [address], [place] [facility] 07/23/2022 12:35:35 Imaging Results Imaging Date Name Status LastModified by Organization Details LastModified Time 08/08/2022 CT, abdomen + pelvis, w/ contrast completed [address], [place], [address], 11/19/2022 10:44:02 04/16/2024 US, pelvis completed [email or web address] [place] [address], [place], [address], 04/16/2024 12:56:05 04/16/2024 US, [facility]aginal [facility] [address], [place], [address], 04/16/2024 12:56:18 04/16/2024 US, pelvis completed [email or web address], [place], [address], 04/16/2024 21:50:32 05/04/2024 CT, abdomen + pelvis, w/wo contrast completed [facility] [address], [place], [address], 05/08/2024 10:18:42 Procedure Notes None recorded. Medical [...] Prescrib ed Elsewher e: Yes Loca tion: [facility] M odify By: elaine zambrano DateTime : 03/26/20 17 08:15:00 AM Not Available Not Available Not Available esomepraz ole magnesium 40 mg capsule,d elayed release Take 1 capsule every day by oral route. 04/23 completed Not Available Not Available Not Available lisinopri l 10 mg tablet take 1 tablet by oral route every day 07/23 completed Prescrib ed Elsewher e: Yes [facility]ify By: elaine zambrano DateTime [...] Prescrib ed Elsewher e: Yes Loca tion: [facility] odify By: elaine zambrano DateTime : 03/26/20 [...] Updated DateTime 07/23/2022 154.94 cm 25.3 kg/m2 46435.66 g Kathleen Espino [facility] 07/23/2022 10:25:10 Date Recorded Systolic blood pressure Diastolic blood pressure Provider Name and Address Organization Details Last Updated DateTime 07/23/2022 160 mm[Hg] 80 mm[Hg] Nithya Chan, [facility] [address], [place], [address], [facility] 07/23/2022 10:46:50 Date Recorded Body height Body mass index (BMI) Body weight Provider Name and Address Organization Details Last Updated DateTime 11/19/2022 154.94 cm 25.3 kg/m2 48579.38 g Annie Juan [facility] 11/19/2022 09:55:37 Date Recorded Systolic blood pressure Diastolic blood pressure Provider Name and Address Organization Details Last Updated DateTime 11/19/2022 118 mm[Hg] 80 mm[Hg] Nithya Chan [facility] [address], [place], [address], [facility] 11/19/2022 10:43:52 Date Recorded Body height Body mass index (BMI) Body weight Systolic blood pressure Diastolic blood pressure Provider Name and Address Organization Details Last Updated DateTime 04/23/2024 154.94 cm 25.7 kg/m2 52117.56 g 159 mm[Hg] 83 mm[Hg] Annie Juan [facility] 16:54:54 Social History Question Answer Notes LastModified by Organizat ion Details LastModified Time Tobacco Smoking Status Never Smoker Kathleen merino, [facility] 07/23/2022 10:27:31 What Is Your [...] (Food, seasonal, environmental ) N Other N Drug/Latex Allergies/Reactions N Blood Transfusion N Breast Cancer N Dermatologic Disorders N Lung Disease N Defects or Inherited Disease N Breast Problem N Gestational Diabetes N Hematologic disorders N Anesthesia Complications N History of STI N Deep Vein Thrombosis N Polycystic ovary syndrome N Anxiety Disorder N Autoimmune disease N Arthritis N Polyps N Infertility N Acid Reflux (GERD) N History of abnormal pap N Cancer Y Varicosities N Stroke N Neurologic/Epilepsy N Endometriosis N High Cholesterol N Fibromyalgia N Headaches N Kidney Disease N Heart Problems N Thyroid Problems N Kidney or Bladder Problems N GI Problems N Eating Disorder [...] SNOMED-CT Code Diagnosis ICD10 Code Diagnosis Note [id number] Nithya Chan [facility] [address] [address] 07/23/2022 10:13:26 07/23/2022 18:22:21 Pain in pelvis 17659024 R10.[address] scan-very atrophic unsure [...] of plan of care. Screening mammography 24 387217 Z12.31 [id number] Nithya Chan [facility] [address] [address] 11/19/2022 09:34:38 11/19/2022 11:03:52 Dyspareunia [id number] N90.5 Patient not able to start the vaginal estrogen.I t was $500 for Rx premarin.W e discussed initiating therapy using imvexxy samples.We will get her formulary to determine what is covered that is affordable & if there is nothing consider using [facility] g pharmacy for vaginal estrogen product.sh e is in agreement. F/U x 3mos once therapy is initiated. Time spent in visit is a total of 15 mins with at least 50% of visit consisting of counseling and review of plan of care. [id number] Elena Rosenthal [place] [address] [address] 04/16/2024 10:53:27 04/16/2024 11:43:03 Pain in pelvis 72720090 R10.2 [id number] Clement Barnes MD [place] [address] [address] 04/23/2024 16:24:38 04/23/2024 17:25:40 Inguinal pain [id number] R10.2 74-year-ol d female with a pain [...] [employer] (MEDICARE SUPPLEMENT) Ary Hairston [id number] Ary Hairston 07/23/2022 1 MEDICARE B: [employer] - RAILROAD MEDICARE Ary Hairston [id number] Ary Hairston 11/19/2022 2 [employer] (MEDICARE SUPPLEMENT) Ary Hairston [id number] Ary Hairston 11/19/2022 1 MEDICARE B: [employer] - RAILROAD MEDICARE Ary Hairston [id number] Ary Hairston 04/16/2024 2 [employer] OPTIONS (MEDICARE SUPPLEMENT) Ary Hairston [id number] Ary Hairston 04/16/2024 1 MEDICARE B: [employer] - RAILROAD MEDICARE Ary Hairston [id number] Ary Hairston 04/23/2024 2 [employer] OPTIONS (MEDICARE SUPPLEMENT) Ary Hairston [id number] Ary Hairston 04/23/2024 1 MEDICARE B[facility] Ary Hairston [id number] Ayr Hairston Notes Date Note Type Note Provider Name and Address Organization Details Recorded Time 07/23/2022 text/html Patient is a 72y o white female here today to discuss pelvic pain present that started Apr 2022 while on a cruise with her spouse.Lower midline that wraps around left/right sides into groin.Throbbing/a greg.Comes/goes. Unsure of triggers.Random.N eg GI issuesNeg dysuria, urgency, frequency but reports a lot of pelvic pressure. 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 ovarian vs uterine, cervical etc).She reports having had a hysterectomy-1994 for cancer and sent to [facility].She had no radiation, Chemo or other pharm treatment.It was recommended she seek TRAFFIC CONTROL FLAGGER evaluation for this issue.Requests mammo order today ALAINA Moreno [address], [place], [address], [facility] 07/23/2022 12:49:57 11/19/2022 text/html Here today for medication check of vaginal estrogen. RAHEL Moreno [address], [place], [address], [facility] 11/19/2022 10:49:41 04/23/2024 text/html 74-year-old female [...] unremarkable. Clement Barnes MD [address], [place], [address], [facility] 04/23/2024 17:25:04 OBGyn Episode Ob Episode Information Episode Created Date Number of Fetuses Patient Bloodtype Patient rh Status Prepregnancy Weight lbs Domestic Partner Domestic Partner Phone Father Name Tape Editor Status 07/23/19 23 1 CLOSED Fetus Data First Name Last Name Admitted to NICU Weight (g) Sex Living Outcome Pediatric Complications Fetus ID Race Codes Race Delivery Type 2834.95 F Full Term 90322 Vaginal Delivery Jamal Calculation Initial Jamal Date [...] Domestic Partner Domestic Partner Phone Father Name Tape Editor Status 07/23/19 23 1 CLOSED Fetus Data First Name Last Name Admitted to NICU Weight (g) Sex Living Outcome Pediatric Complications Fetus ID Race Codes Race Delivery Type 3061.74 6 M Full Term [id number] Primary Jamal Calculation Initial Jamal Date Initial [...] Domestic Partner Domestic Partner Phone Father Name Tape Editor Status 07/23/19 23 1 CLOSED Fetus Data First Name Last Name Admitted to NICU Weight (g) Sex Living Outcome Pediatric Complications Fetus ID Race Codes Race Delivery Type 2919.77 1704 F Full Term [id number] Primary Jamal Calculation Initial Jamal Date Initial [...]
[2024-09-09] MEDS: ACETAMINOPHEN 500 MG TABLET 1000 MG PO (09:59)
[2024-09-09] MEDS: LACTATED RINGERS 1,000 ML 30 ML IV CONT ×2 (09:59→13:50)
[2024-09-09] MEDS: KETOROLAC 15 MG/ML VIAL (*BKC) IV PUSH (10:00)
[2024-09-09 10:09] LABS: Glucose Point of Care 136 mg/dl (65-105)
--- NOTE | 2024-09-09 10:45 | WPDHPUPDATE1 ---
History and Physical Update Update Date/Time: 09/09/24 10:45 History and Physical has been reviewed, including an updated exam of the patient. There are NO changes in the patient's condition. Risks, benefits, and alternatives have been discussed and questions answered. Patient agrees to proceed with procedure.
[2024-09-09] MEDS: ceFAZolin 2 GM/D5W 50 ML 2 GM/50 ML BAG IVPB (11:05)
[2024-09-09] MEDS: BUPIVACAINE/EPINEPHRINE 0.5% 50 ML VIAL 30 ML INFILTRATE (11:23)
--- NOTE | 2024-09-09 13:58 | W.PM.PROC2 ---
Procedure Note - Detailed Date of Procedure 09/09/24 Pre-op Diagnosis recurrent right incarcerated inguinal hernia Post-op Diagnosis Same (Incarcerated recurrent right femoral hernia, extensive adhesions) Procedure Performed Robotic laparoscopic repair recurrent incarcerated right femoral hernia with mesh, extensive adhesiolysis Surgeon Benjamin Duarte MD Brake Operator Sheila Red ELECTRIC LINEMAN Anesthesia General and Local Indications Patient has had a tender mass and discomfort in the right groin for a couple of years. Her exam showed a tender nodule in the right groin. She has had both a CT scan and an ultrasound which showed an incarcerated inguinal hernia. The CT scan showed that there was urinary bladder incarcerated in the hernia. She is taken to surgery now for robotic laparoscopic repair. Patient has had a history of ovarian cancer and has had previous pelvic surgery for this. Findings There were extensive abdominal adhesions. The postoperative changes in the pelvis resulted in lack of normal peritoneal lining as well as dense pelvic adhesions. The surface landmarks were difficult to distinguish. The hernia was in the femoral space and quite incarcerated. It was obvious the urinary bladder was involved. There was no evidence of bowel or bladder injury from the surgery. 16 x 10 cm 3DMax mesh was used for repair. Description of Procedure Patient was taken to surgery and induced into general anesthesia. The planned trocars were marked on the skin. Local was infiltrated into the area of each of the planned trocar sites. The initial trocar was a left subcostal applied Medical 5 mm optical trocar. This was placed intra abdominal E. Insufflation was carried out. There were noted to be extensive adhesions such that a left lower quadrant trocar would be necessary even to place the other 2 robotic trocars. A 5 mm optical trocar was placed in the left lower abdomen. The camera was positioned here. I then laparoscopically took down adhesions around the initial trocar and across to the midline. These were primarily omental adhesions. Continued adhesiolysis eventually freed enough of the anterior abdominal wall that we could place the robotic trocars. Local anesthetic was also infiltrated to provide ileoinguinal nerve block on the right side. Three 8 mm robotic trocars were then placed. We used these trocars and continued to take down a few more adhesions so that there would be adequate room for robotic instruments and camera. Patient was then placed in Trendelenburg. The robot was brought into the field and the camera was docked and targeted. The to operating arms were docked and instruments were positioned appropriately. The surgeon then went to the robotic console. The mid and lower abdominal adhesions were much more difficult than the upper abdominal adhesions. They involved several loops of bowel. Fortunately the excellent visualization afforded by the robot made this much more easy and safe. These adhesions were carefully taken down trying to leave the peritoneum intact. In the pelvis, there were additional bowel adhesions both small bowel and colon. We continued do take these down leaving all the peritoneum intact. It was noted that there was only a thin membrane over the posterior aspect of the right and left rectus abdominis muscle. The median umbilical ligament was no longer present. I made the initial peritoneal incision laterally at about the level of the anterior superior iliac spine. I continued this from lateral to medial. The peritoneum here was exceptionally thin. Medially, the peritoneum was more normal. Bowel adhesions and the very frail peritoneum laterally resulted in large tears in this direction. Fortunately from the internal ring on medially the peritoneum was much closer to normal. In the medial aspect, dissection was carried out on the posterior surface of the right rectus muscle and proceeding caudally to Reagan's ligament. Adhesions were somewhat bloody and cautery was used. There was a lot of scarring from the previous surgery. Eventually, Reagan's ligament was found. Dissection was then carried out posterior to Reagan's ligament 1-2 cm. There was a lot of scarring in the midline but eventually I was able to dissect and see the pubis. Continued dissection was carried out so that the medial aspect of the left rectus muscle was able to be visualized as well. I then went back to the peritoneal flap. I dissected the edge of the flap posterior to the stairs and dissected the peritoneum off the underlying abdominal wall laterally and then medially. The round ligament was evident. I then went back to the area of Reagan's ligament and continued dissection here. The incarcerated femoral hernia was found. I gently cauterized circumferentially at the neck of the hernia. It was slowly reduced. I was able to see quite a bit of the urinary bladder in the herniated tissue. There was a lot of herniated tissue but eventually it was all reduced. No evidence of bladder injury was present. I then dissected more posterior on Reagan's ligament and the pubis creating more of a space and therefore the lower edge of the mesh. I also dissected under the inferior epigastric vessels to ensure that there was not herniation in the direct or indirect space. The round ligament was dissected and then traction was placed on it. I divided yet near the internal ring. I did more dissection to create an adequate space for the lower margin of the mesh so that would be at least 4 cm posterior to the internal ring. Eventually the dissection was completed. A 16 x 10 cm right mid 3DMax mesh was then introduced. It was positioned appropriately in the inguinal and femoral space. I then sutured the mesh in place with 3-0 Vicryl in the usual fashion. The initial suture was to Reagan's ligament and was directly posterior to the area of the hernia. With the mesh in place I double checked that all edges of the hernia were against the abdominal wall and not subject to peritoneal turning of the edges. I then closed the peritoneal opening starting medially and proceeding laterally. There was actually and a peritoneum to make this closure without really using any of the torn peritoneum or leaving any holes in the closure. Three 0 V lock suture was used to close the peritoneum. Both the suture needles were then removed from the abdomen. Instruments were removed and CO2 was evacuated. The robot was undocked and trocars were removed. Skin wounds were closed with subcuticular 4-0 Monocryl skin suture. Wound wounds were dressed with Exofin see that he has. The surgery lasted over 2 hours mostly due to the extent stiff adhesiolysis this as well as S the disrupted tissue plane pains making a surgery prolonged and and more difficult. Surgery was also much more bloody than usual with 5 times the usual blood loss. This also made visualization and dissection much more difficult. Implants 16 x 10 cm right mid 3DMax mesh Estimated Blood Loss -25 Drains No Packing No Pathology None sent Complications None Condition Stable Disposition PACU [facility] Billing Surgery - Charge Forward: Surgery Billing (Robotic laparoscopic repair recurrent incarcerated right femoral hernia with mesh-add 22 modifier; laparoscopic adhesiolysis)
[2024-09-09 14:01] LABS: Glucose Point of Care 196 mg/dl (65-105)
[2024-09-09] MEDS: ONDANSETRON INJ 4 MG/2 ML VIAL IV PUSH (15:19)
== END 2024-09-09 15:42 | disposition home or self-care (01) ==
PROVIDERS: PCP Internal Medicine; Visit Provider Surgery
PROC: 8E0Y4CZ Robotic Assisted Procedure of Lower Extremity, Percutaneous Endoscopic Approach (ICD-10-PCS; CPT 49650; principal; 2024-09-09 11:00)
DX: K41.31 Unilateral femoral hernia, with obstruction, without gangrene, recurrent (principal); E11.40 Type 2 diabetes mellitus with diabetic neuropathy, unspecified
CPT/HCPCS: 49659; S2900; 82948; A9270; C1781; J0330; J0690; J1100; J1885; J2250; J2405; J3010; J7120